=== PATIENT | male | born 1985 | race Caucasian/White ===

== ENCOUNTER 2019-12-13 12:58 | Emergency (ER) | payer OTHER, SELFPAY ==
[2019-12-13 13:00] VITALS: BP 130/79; PULSE 91; RESP 16; TEMP 35.6; O2SAT 98
--- NOTE | 2019-12-13 13:22 | ED.GENADULT ---
HPI - General Adult General Chief complaint: Skin/Abscess/Foreign Body Stated complaint: boils on my inner thigh Time Seen by Provider: 12/13/19 13:20 Source: patient Mode of arrival: ambulatory Limitations: no limitations History of Present Illness HPI narrative: Patient is a 34-year-old male who presents for evaluation of burning irritation on the right inguinal thigh region. Patient reports blister type lesions which appeared 2 days ago, are painful, burning in nature. Patient denies penile pain, penile discharge, lesions on the penis. He denies testicular pain, redness, swelling. No nausea or vomiting. No fever or chills. Patient with recent HIV test which was negative. No other history of sexually transmitted infections. Patient does have sex with other men, states no new partners. No history of genital herpes. Patient has not noticed any purulent drainage. Pt with hx of pilonidal cyst in the past. Related Data Allergies Allergy/AdvReac Type Severity Reaction Status Date / Time Penicillins Allergy Mild Swelling Verified 12/13/19 12:59 Review of Systems Review of Systems: Narrative: CONSTITUTIONAL: Denies fever CARDIOVASCULAR: Denies chest pain RESPIRATORY: Denies cough or dyspnea. GASTROINTESTINAL: Denies abdominal pain : Reports right inguinal lesions, burning pain, denies testicular pain, swelling, redness, penile discharge, dysuria or hematuria SKIN: Denies rash MUSCULOSKELETAL: Denies back pain NEUROLOGIC: Denies headache [facility] Past Medical History Medical History (Updated 12/13/19 @ 14:22 by Mya Man MD) Anxiety Depression History of pilonidal cyst Social History Social History Smoking status: Current every day smoker Gender identity (if verbalized by the patient): Male Exam Narrative: Exam Narrative: GENERAL: Awake, alert, conversant, tearful HEAD: Normocephalic, atraumatic. EYES: PERRLA and EOMI. ENT: Nares clear, no rhinorrhea or epistaxis. Mucous membranes moist. NECK: Supple. CHEST: No respiratory distress, breathing even and non labored HEART: Regular rate, sinus rhythm ABDOMEN:Non distended, non tender : Testicles are nontender, normal lie, no erythema. Penis is circumcised, glans is unremarkable. No penile discharge. No penile lesions. Along the right inguinal fold, there is very minimal erythema, honeycomb type cluster of lesions. No purulent discharge or abscess. No severe induration, mild erythema surrounding and tenderness. No lymphadenopathy. They are tender to palpation. EXTREMITIES: Normal range of motion. No edema. SKIN: Warm, dry, no rash. NEURO:No focal deficits. Alert and oriented x3 Course Vital Signs Vital signs: Vital Signs Temperature 35.6 C L 12/13/19 13:00 Pulse Rate 91 12/13/19 13:00 Respiratory Rate 16 12/13/19 13:00 Blood Pressure 130/79 12/13/19 13:00 Pulse Oximetry 98 12/13/19 13:00 Temperature 36.6 C 12/13/19 14:06 Pulse Rate 79 12/13/19 14:06 Respiratory Rate 16 12/13/19 14:06 Blood Pressure 134/100 H 12/13/19 14:06 Pulse Oximetry 95 12/13/19 14:06 Medical Decision Making MDM Narrative Medical decision making narrative: Patient with history of abscess, here with inguinal irritation. On exam, this seems most consistent with possible genital herpes given burning type pain, appearance of lesions being cluster-like, almost blisterlike in appearance. No purulent discharge. No abscess or fluctuance. No surrounding lymphadenopathy. Pt without testicular pain, edema, erythema thus I doubt torsion based on symptoms and physical exam. US not obtained. Patient without dysuria or hematuria was offered chlamydia and gonorrhea testing and declines. He was offered HIV testing but also declined. Currently, patient has no systemic symptoms. I explained that we will treat with antibiotics, swab the area and treat with acyclovir for possible herpes. Pt penicillin
[2019-12-13] MEDS: oxyCODONE/ACETAMINOPHEN 5-325 MG TABLET 1 TABLET PO (13:55)
[2019-12-13 14:06] VITALS: BP 134/100; PULSE 79; RESP 16; TEMP 36.6; O2SAT 95
[2019-12-18 04:39] LABS: Herpes Simplex Type 1 DNA PCR Not Detected (Not Detected); Herpes Simplex Type 2 DNA PCR Not Detected (Not Detected)
== END 2019-12-13 14:07 | disposition home or self-care (01) ==
PROVIDERS: Emergency Provider Emergency Medicine
DX: L98.9 Disorder of the skin and subcutaneous tissue, unspecified (principal); F17.200 Nicotine dependence, unspecified, uncomplicated
CPT/HCPCS: 36415; 87529; 99283; A9270

== ENCOUNTER 2022-12-24 12:23 | Emergency (ER) | payer OTHER, SELFPAY ==
[2022-12-24] VITALS (18 sets, daily range): BP systolic 110–153; BP diastolic 77–107; PULSE 96–106; RESP 18–20; TEMP 36.9; O2SAT 84–100
--- NOTE | ~2022-12-24 | CT_ITS ---
EXAMINATION: CT abdomen pelvis wo con DATE: 12/24/2022 14:45 INDICATION: Right flank pain. TECHNIQUE: Computed tomography (CT) of the abdomen and pelvis was performed without intravenous contr ast. Automated exposure control and iterative reconstruction technique were employed. The dose-length product was 1322.50 mGy-cm. COMPARISON: None. FINDINGS: The visualized portions of the lung bases demonstrate mild atelectasis. No pleural effusion . The heart size is normal. No pericardial effusion. There is diffuse hepatic steatosis. The gallblad mitchell, spleen, pancreas, adrenal glands, and kidneys are normal. There is no urolithiasis. There are no dilated loops of bowel. The appendix is normal. There are no pathologically enlarged lymph nodes. Th ere is no free intraperitoneal fluid. There is mild thoracic and lumbar spondylosis. There is mild ch ronic anterior wedging of T11 and T12 vertebral bodies. IMPRESSION: 1. No urolithiasis. 2. Diffuse hepatic steatosis. Reviewed, dictated and finalized at location A.
[2022-12-24 12:50] LABS: Basophils Absolute Auto 0.1 K/mm3 (0.0-0.1); Basophils Percent Auto 0.9 % (0.2-1.2); Eosinophils Absolute Auto 0.8 K/mm3 (0-0.3); Eosinophils Percent Auto 8.9 % (0-4.4); Hematocrit 48.2 % (42.0-52.0); Hemoglobin 15.8 g/dL (14.0-18.0); Immature Granulocyte Absolute 0.02 K/mm3 (0.00-0.031); Immature Granulocyte Percent A 0.2 % (0-0.5); Lymphocytes Absolute Auto 3.04 K/mm3 (0.9-3.2); Lymphocytes Percent Auto 34.9 % (18.3-44.2); Mean Corpuscular HGB Conc 32.8 g/dl (32-36); Mean Corpuscular Hemoglobin 31.2 pg (26-34); Mean Corpuscular Volume 95.3 fl (80-100); Mean Platelet Volume 10.1 fl (7.4-10.4); Monocytes Absolute Auto 0.6 K/mm3 (0.1-0.6); Neutrophils Absolute Auto 4.2 K/mm3 (1.3-6.7); Neutrophils Percent Auto 48.1 % (45.5-73.1); Platelet Count Result 303 k/mm3 (150-375); Red Blood Count 5.06 M/mm3 (4.6-6.20); Red Cell Distribution Width 14.9 % (11.5-14.5); White Blood Count 8.7 K/mm3 (4.5-10.0)
[2022-12-24 12:52] LABS: Appearance Urine Clear (Clear); Bilirubin Urine Negative (Negative); Blood Urine Negative (Negative); Color Urine Yellow (Yellow); Glucose Urine UA Negative (Negative); Ketones Urine Negative (Negative); Leukocyte Esterase Ur Negative LEU/UL (Negative); Nitrate Urine Negative (Negative); Protein Urine Negative (Negative); Specific Grav Ur 1.014 (1.001-1.035); Urobilinogen Urine 0.2 mg/dL (<2.0)
[2022-12-24 13:04] LABS: Alanine Aminotransferase 29 U/L (6-50); Albumin Level 4.5 g/dL (3.5-5.1); Alkaline Phosphatase 60 U/L (38-126); Anion Gap 8 mmol/L (8-16); Aspartate Amino Transferase 24 U/L (17-59); Bilirubin,Total 0.6 mg/dL (0.2-1.3); Blood Urea Nitrogen 11 mg/dL (9-20); Calcium 8.9 mg/dL (8.4-10.2); Carbon Dioxide 24 mmol/L (22-30); Chloride 105 mmol/L (98-107); Estimated CRCL calculation 123 ml/min; Estimated Glomerular Filt Rate > 60; Glucose 109 mg/dL (65-110); Potassium 4.5 mmol/L (3.4-5.0); Sodium 137 mmol/L (137-145)
[2022-12-24 13:20] LABS: Add Urine Microscopic? NO
[2022-12-24] MEDS: KETOROLAC (*BKC) 60 MG/2 ML VIAL IM (14:22)
--- NOTE | 2022-12-24 14:41 | PC.NURSE ---
taken to CT at this time by foundation director.
--- NOTE | 2022-12-24 14:46 | PC.NURSE ---
pt returned from CT at this time.
--- NOTE | 2022-12-24 15:50 | ED.ABDPAIN ---
HPI - Abdominal Pain General Chief Complaint: Urogenital-Male Stated Complaint: lower back pain Time Seen by Provider: 12/24/22 13:28 History of Present Illness HPI narrative: This is a 37-year-old male, with no significant past medical history, who presents to the emergency department complaining of right flank and abdominal pain for the past day. The patient describes the pain as sharp and cramping, rated 9/10, radiating from the right flank to the groin. He states he also had difficulty with urinating, having to push associated with discolored appearing urine. He denies fevers, chills though does complain of some nausea. Related Data Allergies Allergy/AdvReac Type Severity Reaction Status Date / Time Penicillins Allergy Mild Swelling Verified 12/24/22 12:44 Review of Systems Review of Systems: CONSTITUTIONAL: Denies fever, chills, or sweats. CARDIOVASCULAR: Denies chest pain, palpitations, or edema. RESPIRATORY: Denies cough or dyspnea. GASTROINTESTINAL: Right flank and abdominal pain, radiating to the groin denies nausea, vomiting, or diarrhea. GENITOURINARY: Dysuria denies hematuria. SKIN: Denies rash or itching. MUSCULOSKELETAL: Denies back pain, joint pain, or myalgia. NEUROLOGIC: Denies headache, numbness, dizziness, or weakness. PSYCHIATRIC: Denies anxiety or depression. [facility] Past Medical History Medical History (Updated 12/25/22 @ 00:07 by Sammi Quinonez) Anxiety Depression History of pilonidal cyst Surgical History Surgical History (Updated 12/25/22 @ 07:12 by Holden Heaton MD) No significant past surgical history Social History Social History Smoking status: Current every day smoker Gender identity (if verbalized by the patient): Male Exam Narrative: GENERAL: Well-developed, well-nourished, and in no acute distress. HEAD: Normocephalic, atraumatic. EYES: PERRLA and EOMI. CHEST: Clear to auscultation. No respiratory distress. No wheezes rales or rhonchi HEART: Regular rate and rhythm. No murmur heard. Normal peripheral pulses. ABDOMEN: Soft, tender to palpation in the right upper quadrant without rebound or guarding, nondistended, normal active bowel sounds. Mild right CVA tenderness to palpation. No left CVA tenderness EXTREMITIES: Normal range of motion. No edema. SKIN: Warm, dry, no rash. NEURO: No focal deficits. Alert and oriented x3. PSYCH: Normal mood and affect. Course Course Emergency Course: 15:45 - CBC unremarkable. Chemistries unremarkable. UA negative. Noncontrast CT of the abdomen not concerning for stone or other acute intra-abdominal process. On reevaluation after Toradol, the patient states his pain is much improved though still present. I suspect the patient may have passed a stone. Will discharge with recommendation for NSAIDs for pain. Discussed return and emergency precautions including signs/symptoms of acute abdomen and intractable vomiting. The patient voiced understanding and is comfortable with the plan. All questions answered to his satisfaction. Vital Signs Vital signs: Vital Signs Temperature 98.4 F 12/24/22 12:44 Pulse Rate 106 H 12/24/22 12:44 Respiratory Rate 20 12/24/22 12:44 Blood Pressure 142/98 H 12/24/22 12:44 Pulse Oximetry 84 L 12/24/22 12:44 Oxygen Delivery Room Air 12/24/22 12:44 Temperature 98.4 F 12/24/22 12:44 Pulse Rate 96 12/24/22 12:44 Respiratory Rate 18 12/24/22 12:44 Blood Pressure 127/78 12/24/22 15:47 Pulse Oximetry 100 12/24/22 15:47 Oxygen Delivery Room Air 12/24/22 12:44 MDM - Abdominal Pain MDM Narrative Medical decision making narrative: Plan: Labs, imaging, pain control, reassess Differential Diagnosis Differential diagnosis: Likely acute appendicitis, calculus of kidney, diverticulitis, pancreatitis, small bowel obstruction and other (Metabolic abnormality, UTI, other) Lab Data 12/24/22 12:42
[2022-12-24] MEDS: ACETAMINOPHEN 500 MG TABLET 1000 MG PO (15:56)
== END 2022-12-24 16:06 | disposition home or self-care (01) ==
PROVIDERS: Student in an Organized Health Care Education/Training Program; Emergency Provider Preventive Medicine Aerospace Medicine
DX: R10.9 Unspecified abdominal pain (principal); F17.200 Nicotine dependence, unspecified, uncomplicated
CPT/HCPCS: 36415; 74176; 80053; 81003; 85025; 96372; 99284; A9270; J1885

== ENCOUNTER 2023-06-15 09:01 | Emergency (ER) | payer OTHER, SELFPAY ==
[2023-06-15] VITALS (10 sets, daily range): BP systolic 104–148; BP diastolic 53–97; PULSE 64–105; RESP 11–24; TEMP 36.8; O2SAT 97–100
--- NOTE | ~2023-06-15 | XR_ITS ---
EXAMINATION: XR chest 2V DATE: 06/15/2023 12:18 INDICATION: Cough. Chest pain. TECHNIQUE: Frontal and lateral views of the chest were obtained. COMPARISON: CT abdomen and pelvis 12/24/2022 FINDINGS: There is no pneumonia, pleural effusion, or pneumothorax. The heart size is normal. IMPRESSION: 1. No acute cardiopulmonary disease. Reviewed, dictated and finalized at location A. [employer]ATCHER
[2023-06-15 10:14] LABS: Influenza A QL RT-PCR Negative (Negative); Influenza B QL RT-PCR Negative (Negative); RSV RNA, RT-PCR Positive (Negative); SARS-CoV-2 RNA PCR Negative (Negative)
--- NOTE | 2023-06-15 10:44 | ECG_ITS ---
Measurements Intervals [place] Rate: 72 P: 37 OK: 167 QRS: 83 QRSD: 106 T: 40 QT: 355 QTc: 389 Interpretive Statements SINUS RHYTHM DELAYED PRECORDIAL R/S TRANSITION BASELINE WANDER- V4-V6 BORDERLINE ECG NO PREVIOUS ECG AVAILABLE FOR COMPARISON Electronically Signed On 06-15-2023 11:11:06 MEDICAL RECORDS ADMINISTRATOR by Krishna Lopez D.O.
--- NOTE | 2023-06-15 10:47 | ED.URI ---
HPI - URI/Sore Throat General Chief Complaint: Upper Respiratory Infection Stated Complaint: URI Time Seen by Provider: 06/15/23 09:25 History of Present Illness HPI Narrative: 37-year-old male with history of SLE, anxiety and depression reports for evaluation for multiple medical complaints. He is reporting pleuritic chest pain, generalized abdominal pain, sore throat, shortness of breath, Body aches, fever, dry cough x1 week. He reports with his partner who has similar symptoms. states his fevers been between 100-102 at home. He is afebrile here. Related Data Allergies Allergy/AdvReac Type Severity Reaction Status Date / Time Penicillins Allergy Mild Swelling Verified 06/15/23 12:08 Review of Systems Review of Systems: CONSTITUTIONAL: see HPI EYES: Denies visual changes, redness, or discharge. ENT: Denies rhinorrhea, congestion, sore throat, or otalgia. CARDIOVASCULAR: See HPI RESPIRATORY: see HPI GASTROINTESTINAL: see HPI GENITOURINARY: Denies dysuria or hematuria. SKIN: Denies rash or itching. MUSCULOSKELETAL: Denies back pain, joint pain, or myalgia. NEUROLOGIC: Denies headache, numbness, or weakness. PSYCHIATRIC: Denies anxiety or depression. [facility] Past Medical History Medical History Anxiety Depression History of pilonidal cyst Surgical History Surgical History No significant past surgical history Social History Social History Smoking status: Current every day smoker Gender identity (if verbalized by the patient): Male Exam Narrative: GENERAL: nontoxic appearing in no acute distress. tearful And anxious HEAD: Normocephalic, atraumatic. EYES: PERRLA and EOMI. ENT: Nares clear, no rhinorrhea or epistaxis. Mucous membranes moist. posterior pharynx with mild erythema. No tonsillar hypertrophy or exudates. Uvula is midline. NECK: Supple. CHEST: Clear to auscultation. No respiratory distress. HEART: Regular rate and rhythm. No murmur heard. Normal peripheral pulses. ABDOMEN: Soft, nontender, nondistended, normal active bowel sounds. No rebound, guarding or rigidity. EXTREMITIES: Normal range of motion. No edema. SKIN: Warm, dry, no rash. NEURO: No focal deficits. Alert and oriented x3 Course Vital Signs Vital signs: Vital Signs Temperature 98.2 F 06/15/23 09:09 Pulse Rate 105 H 06/15/23 09:09 Respiratory Rate 18 06/15/23 09:09 Blood Pressure 148/96 H 06/15/23 09:09 Pulse Oximetry 98 06/15/23 09:09 Temperature 98.2 F 06/15/23 09:09 Pulse Rate 70 06/15/23 12:16 Respiratory Rate 17 06/15/23 12:16 Blood Pressure 129/78 06/15/23 12:16 Pulse Oximetry 99 06/15/23 12:16 Oxygen Delivery Room Air 06/15/23 09:45 MDM - URI/Sore Throat MDM Narrative Medical decision making narrative: 37-year-old male reports for evaluation for multiple medical complaints . See HPI. Triage vital significant for mild tachycardia, otherwise unremarkable. He is afebrile and nontoxic appearing. He is tearful on exam very anxious. Abdomen is soft, no rebound, guarding or rigidity. He is RSV positive. CBC without leukocytosis or anemia. Chemistries are unremarkable. Chest x-ray Shows no acute cardiopulmonary abnormality. Strep negative. UA unremarkable. D-dimer within normal limits, wells score low risk. Troponin less than 0.012. EKG shows sinus rhythm, no ischemic changes. Labs and imaging discussed with the patient. He received IV fluids and Toradol with improvement. Vital signs of improved, tachycardia has normalized. Will send NSAIDs for suspected pleurisy and benzonatate for cough. Encouraged increased fluid intake and follow-up with PCP. Strict ED return precautions discussed. He is agreeable to plan verbalized understanding. Discharged in stable condition. Lab
[2023-06-15] MEDS: KETOROLAC 30 MG/ML VIAL (*BKC) IV PUSH (11:11)
[2023-06-15] MEDS: SODIUM CHLORIDE 0.9% IV 1,000 ML 999 ML IV CONT (11:12)
[2023-06-15 11:20] LABS: Basophils Absolute Auto 0.1 K/mm3 (0.0-0.1); Basophils Percent Auto 1.2 % (0.2-1.2); Eosinophils Absolute Auto 0.8 K/mm3 (0-0.3); Eosinophils Percent Auto 11.9 % (0-4.4); Hematocrit 49.6 % (42.0-52.0); Hemoglobin 16.2 g/dL (14.0-18.0); Immature Granulocyte Absolute 0.02 K/mm3 (0.00-0.031); Immature Granulocyte Percent A 0.3 % (0-0.5); Lymphocytes Absolute Auto 1.76 K/mm3 (0.9-3.2); Lymphocytes Percent Auto 25.8 % (18.3-44.2); Mean Corpuscular HGB Conc 32.7 g/dl (32-36); Mean Corpuscular Hemoglobin 31.2 pg (26-34); Mean Corpuscular Volume 95.6 fl (80-100); Mean Platelet Volume 10.6 fl (7.4-10.4); Monocytes Absolute Auto 0.8 K/mm3 (0.1-0.6); Neutrophils Absolute Auto 3.3 K/mm3 (1.3-6.7); Neutrophils Percent Auto 48.8 % (45.5-73.1); Platelet Count Result 260 k/mm3 (150-375); Red Blood Count 5.19 M/mm3 (4.6-6.20); Red Cell Distribution Width 14.4 % (11.5-14.5); White Blood Count 6.8 K/mm3 (4.5-10.0)
[2023-06-15 11:33] LABS: Strep Group A RT-PCR NOT DETECTED (Negative)
[2023-06-15 11:38] LABS: Alanine Aminotransferase 36 U/L (6-50); Albumin Level 4.3 g/dL (3.5-5.1); Alkaline Phosphatase 65 U/L (38-126); Anion Gap 7 mmol/L (8-16); Aspartate Amino Transferase 27 U/L (17-59); Bilirubin,Total 0.8 mg/dL (0.2-1.3); Blood Urea Nitrogen 13 mg/dL (9-20); Calcium 9.4 mg/dL (8.4-10.2); Carbon Dioxide 30 mmol/L (22-30); Chloride 103 mmol/L (98-107); Estimated CRCL calculation 113 ml/min; Estimated Glomerular Filt Rate > 60; Glucose 92 mg/dL (65-110); Lipase 58 U/L (23-300); Potassium 4.3 mmol/L (3.4-5.0); Sodium 140 mmol/L (137-145)
[2023-06-15 11:40] LABS: D Dimer 0.32 ug/mL (<0.48)
[2023-06-15 11:43] LABS: Appearance Urine Turbid (Clear); Bacteria Urine None Seen /hpf; Bilirubin Urine Negative (Negative); Blood Urine Negative (Negative); Color Urine Yellow (Yellow); Glucose Urine UA Trace mg/dL (Negative); Ketones Urine Negative (Negative); Leukocyte Esterase Ur Negative LEU/UL (Negative); Nitrate Urine Negative (Negative); Non Pathogenic Casts 0-2; Protein Urine Negative (Negative); RBC Urine 0-2 /hpf (0-2); Specific Grav Ur 1.018 (1.001-1.035); Squamous Epithelial Cell Urine None seen /hpf (Few); WBC Urine 0-5 /hpf
[2023-06-15 11:50] LABS: Troponin I < 0.012 ng/mL (0.000-0.034)
[2023-06-15 12:00] LABS: Add Urine Microscopic? YES
== END 2023-06-15 12:50 | disposition home or self-care (01) ==
PROVIDERS: Emergency Medicine; Emergency Provider Physician Assistant
DX: R09.1 Pleurisy (principal); J22 Unspecified acute lower respiratory infection; Z20.822 Contact with and (suspected) exposure to COVID-19; F41.9 Anxiety disorder, unspecified; F32.A Depression, unspecified
CPT/HCPCS: 36415; 71046; 80053; 81001; 83690; 84484; 85025; 85380; 87637; 87651; 93005; 96361; 96374; 99284; J1885; J7030

== ENCOUNTER 2023-11-22 12:26 | Emergency (ER) | payer OTHER, SELFPAY ==
[2023-11-22 12:42] VITALS: BP 158/100; PULSE 75; RESP 16; TEMP 36.2; O2SAT 100
--- NOTE | 2023-11-22 13:07 | ED.GENADULT ---
HPI - General Adult General Chief complaint: Unspecified Stated complaint: lump to right axilla Time Seen by Provider: 11/22/23 12:56 History of Present Illness HPI narrative: 38-year-old male history of hidradenitis suppurativa presents to the emergency room for evaluation of a painful bump to my right armpit. States this mass has been present for 4 weeks. Has denied any drainage. Denies fevers Related Data Allergies Allergy/AdvReac Type Severity Reaction Status Date / Time Penicillins Allergy Mild Swelling Verified 11/22/23 12:26 Review of Systems Review of Systems: ROS unremarkable except for noted in HPI [facility] Past Medical History Medical History Anxiety Depression History of pilonidal cyst Surgical History Surgical History No significant past surgical history Social History Social History Smoking status: Current every day smoker Gender identity (if verbalized by the patient): Male Exam Narrative: GENERAL: Well-appearing, well-nourished, no physical limitations, and in no acute distress. HEAD: Normocephalic, atraumatic. EYES: Conjunctivae normal, PERRLA and EOMI. ENT: External nose normal, Nares clear, no rhinorrhea or epistaxis. Mucous membranes moist. Oropharynx without tonsillar hypertrophy exudate or other lesions. External ears normal, bilateral TMs normal bilaterally NECK: Supple. No meningeal signs. No adenopathy or masses. No carotid bruits or JVD CHEST: Clear to auscultation. No respiratory distress. No wheezes rales or rhonchi. No tenderness. HEART: Regular rate and rhythm. No murmur heard. Normal peripheral pulses. EXTREMITIES: Normal range of motion. No edema. No clubbing or cyanosis SKIN: small mobile, Tender mass noted to right axilla, no surrounding erythema. No drainage. NEURO: No focal deficits. Alert and oriented x3. MAEW. CN's II-XI intact bilaterally, normal gait PSYCH: Cooperative. anxious and tearful Course Vital Signs Vital signs: Vital Signs Temperature 36.2 C L 11/22/23 12:42 Pulse Rate 75 11/22/23 12:42 Respiratory Rate 16 11/22/23 12:42 Blood Pressure 158/100 H 11/22/23 12:42 Pulse Oximetry 100 11/22/23 12:42 Temperature 36.2 C L 11/22/23 12:42 Pulse Rate 75 11/22/23 12:42 Respiratory Rate 16 11/22/23 12:42 Blood Pressure 158/100 H 11/22/23 12:42 Pulse Oximetry 100 11/22/23 12:42 Medical Decision Making Vital Signs Vital Signs: Vital Signs Temperature 36.2 C L 11/22/23 12:42 Pulse Rate 75 11/22/23 12:42 Respiratory Rate 16 11/22/23 12:42 Blood Pressure 158/100 H 11/22/23 12:42 Pulse Oximetry 100 11/22/23 12:42 Temperature 36.2 C L 11/22/23 12:42 Pulse Rate 75 11/22/23 12:42 Respiratory Rate 16 11/22/23 12:42 Blood Pressure 158/100 H 11/22/23 12:42 Pulse Oximetry 100 11/22/23 12:42 Discharge Plan Discharge Clinical Impression: Axillary hidradenitis suppurativa Patient Disposition: Home, Self-Care Condition: Stable Instructions: Antibiotic Form Prescriptions: New clindamycin phosphate 1 % solution 1 applic topical BID Qty: 60 0RF prednisone 20 mg tablet 40 mg PO DAILY 5 Days Qty: 10 0RF Follow-up/Referrals: PHYSICIAN NOT ON STAFF,NONSTAFF [Non-Staff] - Jc Gonzalez DO [Physician] - Time of Disposition: 13:11
[2023-11-22] MEDS: KETOROLAC (*BKC) 60 MG/2 ML VIAL IM (13:23)
== END 2023-11-22 13:41 | disposition home or self-care (01) ==
PROVIDERS: Emergency Provider Nurse Practitioner Family
DX: L73.2 Hidradenitis suppurativa (principal); F17.200 Nicotine dependence, unspecified, uncomplicated
CPT/HCPCS: 96372; 99283; J1885

== ENCOUNTER 2023-12-13 15:48 | Outpatient (CLI) | payer OTHER, SELFPAY ==
--- NOTE | ~2023-12-13 | US_ITS ---
EXAMINATION: US axilla RT DATE: 12/13/2023 16:23 INDICATION: Palpable lump at the right axilla. TECHNIQUE: Multiple grayscale and Doppler ultrasound images of the region of concern at the right axi lla were obtained. COMPARISON: None FINDINGS: Mildly prominent but still normal-sized 2.3 x 1.6 x 0.8 cm right axillary lymph node with normal prom inent central fatty hilum. No other abnormal masses or fluid collections identified. IMPRESSION: 1. Mildly prominent but still normal-sized right axillary lymph node measuring 8 mm in maximal short axis diameter with prominent central fatty hilum. Reviewed, dictated and finalized at location A.
== END 2023-12-13 15:49 | disposition home or self-care (01) ==
PROVIDERS: Visit Provider Surgery
DX: R22.31 Localized swelling, mass and lump, right upper limb (principal)
CPT/HCPCS: 76882

== ENCOUNTER 2024-01-24 12:46 | Emergency (ER) | payer OTHER, SELFPAY ==
--- NOTE | ~2024-01-24 | XR_ITS ---
EXAMINATION: XR chest 2V DATE: 01/24/2024 13:26 INDICATION: Chest pain. TECHNIQUE: Frontal and lateral views of the chest were obtained. COMPARISON: Chest 2 views 06/15/2023, CT abdomen and pelvis 12/24/2022 FINDINGS: There is no pneumonia, pleural effusion, or pneumothorax. The heart size is normal. IMPRESSION: 1. No acute cardiopulmonary disease. Reviewed, dictated and finalized at location A.
--- NOTE | 2024-01-24 12:48 | ECG_ITS ---
Test Date: 2024-01-24 12:53:40 Measurements Intervals [place] Rate: 73 P: 32 IA: 165 QRS: 73 QRSD: 105 T: 5 QT: 351 QTc: 387 Interpretive Statements SINUS RHYTHM DELAYED PRECORDIAL R/S TRANSITION NONSPECIFIC ST-T WAVE ABNORMALITY- INFERIOR LEADS BASELINE ARTIFACT- I, II, AVR, AVL BORDERLINE ECG No previous ECG available for comparison Electronically Signed On 01-24-2024 13:16:54 CDT by Krishna Lopez D.O.
[2024-01-24 12:52] VITALS: BP 170/94; PULSE 85; RESP 20; TEMP 36.7; O2SAT 95
--- NOTE | 2024-01-24 12:52 | ED.CHESTPAIN ---
HPI - Chest Pain General Chief Complaint: Chest Pain Stated Complaint: chest pain Focused HPI: 38-year-old male presents to the emergency department for chest pain for the past 24 hours. Patient states is located in his central chest and at time he feels it in his throat and shoulders. States he took hydroxyzine, aspirin and antacids without improvement. States in the past these medications have helped with his chest pain. Patient describes the pain as burning. Smokes 1ppd for 20 years. Denies dyspnea, fever, cough, congestion, hemoptysis, surgeries or hospitalizations in the past month. Pt is reporting current anxiety. States he has white coat syndrome. GENERAL: Well-appearing, well-nourished, and in no acute distress. HEAD: Normocephalic, atraumatic. CHEST: Clear to auscultation. ?No respiratory distress. HEART: Regular rate and rhythm.? NEURO: ?Alert and oriented x3. Patient screened in triage and initial orders placed.? ?Additional care and disposition to be based upon?diagnostic testing and treatment. Related Data Allergies Allergy/AdvReac Type Severity Reaction Status Date / Time Penicillins Allergy Mild Swelling Verified 12/01/23 13:13 [facility] Past Medical History Medical History Anxiety Depression History of pilonidal cyst Surgical History Surgical History No significant past surgical history Family History Family History (Updated 12/01/23 @ 13:14 by YUMIKO Petit) Other Asthma Cancer Depression Hypertension Social History Social History (Updated 12/01/23 @ 13:15 by YUMIKO Petit) Smoking status: Current every day smoker Do You Feel Safe in your Home?: Yes Lack of Transportation: No Lack of Food: Sometimes True Current Housing: I Do Not Have Housing Concerned About Future Housing: YES Difficulty Paying Gas/Electric Bills: No Difficulty Paying for Meds: YES Currently Unemployed: YES Education: High School Diploma/GED Difficulty w/ Childcare or Family Care: No Gender identity (if verbalized by the patient): Male Course Vital Signs Vital signs: Vital Signs Temperature 98.1 F 01/24/24 12:52 Pulse Rate 85 01/24/24 12:52 Respiratory Rate 01/24/24 12:52 Blood Pressure 170/94 H 01/24/24 12:52 Pulse Oximetry 95 01/24/24 12:52 Oxygen Delivery Room Air 01/24/24 12:52 Temperature 98.1 F 01/24/24 12:52 Pulse Rate 85 01/24/24 12:52 Respiratory Rate 20 01/24/24 12:52 Blood Pressure 170/94 H 01/24/24 12:52 Pulse Oximetry 95 01/24/24 12:52 Oxygen Delivery Room Air 01/24/24 12:52 MDM - Chest Pain Lab Data 01/24/24 13:00 01/24/24 13:00 Labs: Lab Results 01/24/24 Range/Units 13:00 WBC 9.9 (4.5-10.0) K/mm3 RBC 5.14 (4.6-6.20) M/mm3 Hgb 16.4 (14.0-18.0) g/dL Hct 48.9 (42.0-52.0) % MCV 95.1 (80-100) fl MCH 31.9 (26-34) pg MCHC 33.5 (32-36) g/dl RDW 14.3 (11.5-14.5) % Plt Count 256 (150-375) k/mm3 MPV 10.4 (7.4-10.4) fl Immature Gran % (Auto) 0.3 (0-0.5) % Neut % (Auto) 51.1 (45.5-73.1) % Lymph % (Auto) 34.1 (18.3-44.2) % [place] % (Auto) 6.3 (2.6-8.5) % Eos % (Auto) 7.4 H (0-4.4) % Baso % (Auto) 0.8 (0.2-1.2) % Lymph # (Auto) 3.36 H (0.9-3.2) K/mm3 [place]oup # (Auto) 0.6 (0.1-0.6) K/mm3 Eos # (Auto) 0.7 H (0-0.3) K/mm3 Baso # (Auto) 0.1 (0.0-0.1) K/mm3 Abs Immat Gran (auto) 0.03 (0.00-0.031) K/mm3 Absolute Neuts (auto) 5.0 (1.3-6.7) K/mm3 Absolute Nucleated RBC 0.000 (0.0-0.012) K/mm3 Nucleated RBC % 0.0 (0.0-0.2) % PT 13.5 (11.1-14.7) Seconds INR 1.0 APTT 31.5 (22.3-36.8) Seconds Sodium 137 (137-145) mmol/L Potassium 4.2 (3.4-5.0) mmol/L Chloride 102 (98-107) mmol/L Carbon Dioxide 25 (22-30) mmol/L Anion Gap 10 (4-12) mmol/L BUN 12 (9-20) mg/dL Creatinine 1.00 (0.7
[2024-01-24 13:07] LABS: Basophils Absolute Auto 0.1 K/mm3 (0.0-0.1); Basophils Percent Auto 0.8 % (0.2-1.2); Eosinophils Absolute Auto 0.7 K/mm3 (0-0.3); Eosinophils Percent Auto 7.4 % (0-4.4); Hematocrit 48.9 % (42.0-52.0); Hemoglobin 16.4 g/dL (14.0-18.0); Immature Granulocyte Absolute 0.03 K/mm3 (0.00-0.031); Immature Granulocyte Percent A 0.3 % (0-0.5); Lymphocytes Absolute Auto 3.36 K/mm3 (0.9-3.2); Lymphocytes Percent Auto 34.1 % (18.3-44.2); Mean Corpuscular HGB Conc 33.5 g/dl (32-36); Mean Corpuscular Hemoglobin 31.9 pg (26-34); Mean Corpuscular Volume 95.1 fl (80-100); Mean Platelet Volume 10.4 fl (7.4-10.4); Monocytes Absolute Auto 0.6 K/mm3 (0.1-0.6); Monocytes Percent Auto 6.3 % (2.6-8.5); Neutrophils Percent Auto 51.1 % (45.5-73.1); Platelet Count Result 256 k/mm3 (150-375); Red Blood Count 5.14 M/mm3 (4.6-6.20); Red Cell Distribution Width 14.3 % (11.5-14.5); White Blood Count 9.9 K/mm3 (4.5-10.0)
[2024-01-24 13:26] LABS: Alanine Aminotransferase 35 U/L (6-50); Albumin Level 4.6 g/dL (3.5-5.1); Alkaline Phosphatase 65 U/L (38-126); Anion Gap 10 mmol/L (4-12); Aspartate Amino Transferase 26 U/L (17-59); Bilirubin,Total 0.7 mg/dL (0.2-1.3); Blood Urea Nitrogen 12 mg/dL (9-20); Calcium 9.1 mg/dL (8.4-10.2); Carbon Dioxide 25 mmol/L (22-30); Chloride 102 mmol/L (98-107); Estimated CRCL calculation 113 ml/min; Estimated Glomerular Filt Rate > 60; Glucose 170 mg/dL (65-110); Lipase 55 U/L (23-300); Potassium 4.2 mmol/L (3.4-5.0); Prothrombin Time 13.5 Seconds (11.1-14.7); Sodium 137 mmol/L (137-145)
[2024-01-24 13:27] LABS: Partial Thromboplastin Time 31.5 Seconds (22.3-36.8)
[2024-01-24 13:37] LABS: Troponin I < 0.012 ng/mL (0.000-0.034)
--- NOTE | 2024-01-24 16:17 | PC.NURSE ---
pt LWBS d/t wait time
== END 2024-01-24 16:17 | disposition left against medical advice (07) ==
PROVIDERS: Student in an Organized Health Care Education/Training Program; Emergency Provider Physician Assistant
DX: R07.9 Chest pain, unspecified (principal); F17.200 Nicotine dependence, unspecified, uncomplicated; R94.31 Abnormal electrocardiogram [ECG] [EKG]
CPT/HCPCS: 36415; 71046; 80053; 83690; 84484; 85025; 85610; 85730; 93005; 99283

== ENCOUNTER 2024-07-16 19:32 | Emergency (ER) | payer OTHER, SELFPAY ==
--- NOTE | 2024-07-16 19:38 | ED.EAR ---
HPI - Ear Problem General Chief complaint: Ear Stated complaint: both ears painful Time Seen by Provider: 07/16/24 19:38 Source: patient, RN notes reviewed and old records reviewed Mode of arrival: ambulatory Limitations: no limitations History of Present Illness HPI Narrative: 38-year-old male presents to the [facility] with bilateral ear pain that started 2 days ago. Right ear person. Pain radiating into the right jaw area. Patient also has a circular rash with edges raised approximately 1 cm just above left knee anterior portion. Related Data Allergies Allergy/AdvReac Type Severity Reaction Status Date / Time Penicillins Allergy Mild Swelling Verified 07/17/24 02:09 Review of Systems Review of Systems: All systems reviewed & are unremarkable except as noted in HPI and below Constitutional: Constitutional: Reports no additional constitutional complaints ENT: Reports as per HPI and Reports otalgia Cardiovascular: Cardiovascular: Reports no additional cardiovascular complaints, Denies chest pain and Denies dyspnea Respiratory: Respiratory: Reports no additional respiratory complaints, Denies chest congestion, Denies cough and Denies dyspnea Musculoskeletal: Musculoskeletal: Reports no additional musculoskeletal complaints Integumentary/Breasts: Skin/Breast: Reports as per HPI [facility] Past Medical History Medical History History of pilonidal cyst Depression Anxiety Surgical History Surgical History No significant past surgical history Family History Family History Other Asthma Cancer Depression Hypertension Social History Social History Smoking status: Current every day smoker Do You Feel Safe in your Home?: Yes Lack of Transportation: No Lack of Food: Sometimes True Current Housing: I Do Not Have Housing Concerned About Future Housing: YES Difficulty Paying Gas/Electric Bills: No Difficulty Paying for Meds: YES Currently Unemployed: YES Education: High School Diploma/GED Difficulty w/ Childcare or Family Care: No Gender identity (if verbalized by the patient): Male Comments At the time of my signature, I reviewed and agree with the nursing past medical, surgical, social, and family history. There is no relevant family history pertinent to the patient complaint. Exam Const: General: cooperative, healthy appearing, comfortable, no acute distress, well developed, alert and well nourished Nutritional Appearance: well nourished Orientation/consciousness: patient oriented x3 Limitations: no limitations HENMT: Head: normal to inspection Ears: hearing grossly normal bilaterally, external ears normal, TM's normal bilaterally, EAC's normal, mastoids normal and no periauricular adenopathy Teeth image:  1. Dental caries on the inside of molar, inflammation to the surrounding gingiva. Eyes: General: appearance normal, both eyes and all related structures Alignment and Position: alignment normal Neck: Neck: normal visual inspection, full ROM, no lymphadenopathy and no meningeal signs Chest: Chest palpation & inspection: normal inspection of the chest Resp: Effort & Inspection: normal respiratory effort and able to speak in complete sentences Cardio: Rate: regular rate Skin: General skin exam: normal color and no rashes or lesions noted Rashes: rashes noted left anterior upper leg size (1cm) and surface dry; fluctuant not assessed Neuro: General: patient oriented x3, gait normal, moves all extremities and no meningeal signs Cognition (Neuro): normal cognition Speech: normal speech Gait exam (Neuro): Normal gait present Extrem: General: normal to inspection, full ROM, capillary refill normal and normal gait Psych: Appearance: grossly normal and well kempt Mental Status: mental status grossly normal Speech and movement: Normal speech and movement present and Clear speech present Affect: normal affect Attitude: cooperative Course Course Level of Care: Express Care Visit Vital Signs Vital signs: Vital Signs Temperature 97.2 F L 07/16/24 19:41 Pulse Rate 102 H 07/16/24 19:41 Respiratory Rate 16 07/16/24 19:41 Blood Pressure 169/108 H 07/16/24 19:41 Pulse Oximetry 99 07/16/24 19:41 Oxygen Delivery Room Air 07/16/24 19:41 Temperature 97.2 F L 07/16/24 19:41 Pulse Rate 102 H 07/16/24 19:41 Respiratory Rate 16 07/16/24 19:41 Blood Pressure 169/108 H 07/16/24 19:41 Pulse Oximetry 99 07/16/24 19:41 Oxygen Delivery Room Air 07/16/24 19:41 Reviewed Medical Decision Making MDM Narrative Medical decision making narrative: Patient sitting comfortably in exam room. Nontoxic, vitals stable. Patient in no acute distress Patient presents for bilateral ear pain, worse on the right than a half it. Patient has decay noted to the inner aspect of a molar. Some surrounding erythema. TMs with or normal limits Patient reports discomfort to the ears Patient also with concerns of a circular rash to the anterior lower thigh Discussed antibiotics. Patient is allergic to penicillin. Patient reports that he has hidradenitis and has ?plenty of clindamycin at home. Discussed over the counter treatments. Will prescribe antifungal cream for the ring warm. Patient reports questioning a prescription for ibuprofen 800 mg. Patient is appropriate for outpatient treatment with close follow-up. Patient does have an appointment with Dr. Lopez color checker roving or yarn this month. Discharge instructions reviewed with patient, as well as provided in writing per nursing staff. The instructions also include specific and strict return/GO TO THE ER as well as f/u information. All questions have been answered, and the patient deny any further questions with discharge and discharge plan. Some parts of this dictation were generated by voice recognition software and may contain typographical and/or grammatical inaccuracies. Differential Diagnosis Differential Diagnosis: Otitis media, otitis externa, dental pain Medical Records Medical records reviewed: Yes I reviewed the external patient's medical records. Vital Signs Vital Signs: Vital Signs Temperature 97.2 F L 07/16/24 19:41 Pulse Rate 102 H 07/16/24 19:41 Respiratory Rate 16 07/16/24 19:41 Blood Pressure 169/108 H 07/16/24 19:41 Pulse Oximetry 99 07/16/24 19:41 Oxygen Delivery Room Air 07/16/24 19:41 Temperature 97.2 F L 07/16/24 19:41 Pulse Rate 102 H 07/16/24 19:41 Respiratory Rate 16 07/16/24 19:41 Blood Pressure 169/108 H 07/16/24 19:41 Pulse Oximetry 99 07/16/24 19:41 Oxygen Delivery Room Air 07/16/24 19:41 Reviewed Lab Data Lab results reviewed: Yes I reviewed the patient's lab results. Labs: Reviewed Critical Care Time Critical Care Time Critical Care Time: No Discharge Plan Discharge Clinical Impression: Infected dental caries, Tinea corporis Patient Disposition: Home, Self-Care Condition: Stable Instructions: Antibiotic Form, Tinea Corporis (ED), Toothache (ED) Additional Instructions: Today your blood pressure was 169/108. Please follow-up with your primary care provider or color checker roving or yarn within the next 2 weeks to have this rechecked. Finish the entire course of antibiotics & use the mouthwash. After every time you eat be sure to use salt water rinses. Apply ice to face to help with pain. Take Tylenol alternating with Motrin as needed for pain. You can alternate every 4 hours You need to follow-up with a dental provider as soon as possible for further evaluation and treatment. A list of dental providers has been given to you Follow up with a Primary Care Provider (PCP) about medical needs. A PCP can help keep you healthy by preventive medicine and screening. Go to the ER for New or worsening symptoms. For the ring warm on your left leg please apply cream for the next 4 weeks. Follow-up with primary care provider For the worsening symptoms go directly to the emergency room Patient Language: Indonesian Prescriptions: New clotrimazole 1 % cream 1 applic topical BID 28 Days Qty: 45 0RF ibuprofen 800 mg tablet 800 mg PO TID PRN (Reason: pain) Qty: 30 0RF Follow-up/Referrals: PHYSICIAN,CONTROL PANEL ASSEMBLER [Primary Care Provider] - Stand Alone Forms: Work/School Release IP Time of Disposition: 19:48
[2024-07-16 19:41] VITALS: BP 169/108; PULSE 102; RESP 16; TEMP 36.2; O2SAT 99
== END 2024-07-16 19:52 | disposition home or self-care (01) ==
PROVIDERS: Emergency Provider Nurse Practitioner
DX: K02.9 Dental caries, unspecified (principal); B35.4 Tinea corporis; F17.200 Nicotine dependence, unspecified, uncomplicated
CPT/HCPCS: 99213; G0463

== ENCOUNTER 2024-07-16 21:50 | Emergency (ER) | payer OTHER, SELFPAY ==
[2024-07-16 21:57] VITALS: BP 174/97; PULSE 99; RESP 18; TEMP 36.6; O2SAT 100
[2024-07-16] MEDS: ASPIRIN 81 MG CHEWABLE TABLET 324 MG PO (22:05)
[2024-07-16 22:21] LABS: Basophils Absolute Auto 0.1 K/mm3 (0.0-0.1); Basophils Percent Auto 0.7 % (0.2-1.2); Eosinophils Absolute Auto 0.7 K/mm3 (0-0.3); Eosinophils Percent Auto 5.7 % (0-4.4); Hematocrit 46.1 % (42.0-52.0); Hemoglobin 15.7 g/dL (14.0-18.0); Immature Granulocyte Absolute 0.03 K/mm3 (0.00-0.031); Immature Granulocyte Percent A 0.2 % (0-0.5); Lymphocytes Absolute Auto 4.22 K/mm3 (0.9-3.2); Lymphocytes Percent Auto 34.6 % (18.3-44.2); Mean Corpuscular HGB Conc 34.1 g/dl (32-36); Mean Corpuscular Hemoglobin 32.2 pg (26-34); Mean Corpuscular Volume 94.5 fl (80-100); Mean Platelet Volume 10.2 fl (7.4-10.4); Monocytes Absolute Auto 0.8 K/mm3 (0.1-0.6); Monocytes Percent Auto 6.6 % (2.6-8.5); Neutrophils Absolute Auto 6.4 K/mm3 (1.3-6.7); Neutrophils Percent Auto 52.2 % (45.5-73.1); Platelet Count Result 266 k/mm3 (150-375); Red Blood Count 4.88 M/mm3 (4.6-6.20); Red Cell Distribution Width 13.8 % (11.5-14.5); White Blood Count 12.2 K/mm3 (4.5-10.0)
[2024-07-16 22:33] LABS: Alanine Aminotransferase 59 U/L (6-50); Albumin Level 4.5 g/dL (3.5-5.1); Alkaline Phosphatase 90 U/L (38-126); Anion Gap 10 mmol/L (4-12); Aspartate Amino Transferase 31 U/L (17-59); Bilirubin,Total 1.3 mg/dL (0.2-1.3); Blood Urea Nitrogen 11 mg/dL (9-20); Calcium 9.1 mg/dL (8.4-10.2); Carbon Dioxide 26 mmol/L (22-30); Chloride 100 mmol/L (98-107); Estimated CRCL calculation 105 ml/min; Estimated Glomerular Filt Rate > 60; Glucose 138 mg/dL (65-110); Lipase 57 U/L (23-300); Potassium 4.1 mmol/L (3.4-5.0); Sodium 136 mmol/L (137-145)
[2024-07-16 22:41] LABS: Prothrombin Time 13.7 Seconds (11.1-14.7)
[2024-07-16 22:45] LABS: Troponin I < 0.012 ng/mL (0.000-0.034)
[2024-07-17 01:12] VITALS: BP 144/99; PULSE 89; RESP 16; O2SAT 99
[2024-07-17 01:52] LABS: Troponin I < 0.012 ng/mL (0.000-0.034)
[2024-07-17 02:04] VITALS: PULSE 83
[2024-07-17 02:05] VITALS: BP 129/94; PULSE 85; RESP 20; TEMP 36.8; O2SAT 98
[2024-07-17] MEDS: BELLADONNA ALK/PHENOB ELIX 10 ML, MAG HYDROX/ALUMINUM HYD/SIMETH 30 ML, LIDOCAINE 2% VI... PO (02:27)
--- NOTE | 2024-07-17 02:44 | PC.NURSE ---
Before giving patient GI cocktail patient states if that's an indigestion pill then I am going to walk out .
[2024-07-17] MEDS: NITROGLYCERIN SL 0.4 MG TABLET SUBLINGUAL (03:03)
--- NOTE | 2024-07-17 03:04 | PC.NURSE ---
Patient vitals pre first nitro tablet: BP 135/98, HR 67, RR 18, and SPO2 96.
--- NOTE | 2024-07-17 03:11 | PC.NURSE ---
Post first nitro tablet vitals: HR 65, RR 23, SPO2 96, BP, 130/100. Patient reports pain went from a 10 to a 3. Second tablet given.
[2024-07-17 03:19] VITALS: BP 129/99; PULSE 74; RESP 18; TEMP 36.6; O2SAT 95
--- NOTE | 2024-07-17 03:36 | ED.GENADULT ---
HPI - General Adult General Chief complaint: Chest Pain Stated complaint: chest pain, jaw pain Time Seen by Provider: 07/17/24 02:10 History of Present Illness HPI narrative: Patient 38-year-old gentleman presents emergency department chief complaint of jaw and chest discomfort the patient thought that he had a tooth that was bothering him and then this evening noticed that he had a burning sensation of fullness feeling in his chest. Patient states that he has history of hypertension reports that he has had no diaphoresis did report that he felt nauseated with Related Data Allergies Allergy/AdvReac Type Severity Reaction Status Date / Time Penicillins Allergy Mild Swelling Verified 07/17/24 02:09 Review of Systems Review of Systems: A 10 system review of systems was completed on the patient and is negative except for what is stated in the HPI. Nursing and ancillary documentation was reviewed. PMFSH Past Medical History Medical History History of pilonidal cyst Depression Anxiety Surgical History Surgical History No significant past surgical history Family History Family History Other Asthma Cancer Depression Hypertension Social History Social History Smoking status: Current every day smoker Do You Feel Safe in your Home?: Yes Lack of Transportation: No Lack of Food: Sometimes True Current Housing: I Do Not Have Housing Concerned About Future Housing: YES Difficulty Paying Gas/Electric Bills: No Difficulty Paying for Meds: YES Currently Unemployed: YES Education: High School Diploma/GED Difficulty w/ Childcare or Family Care: No Gender identity (if verbalized by the patient): Male Exam Narrative: GENERAL: Well-appearing, well-nourished, and in no acute distress. HEAD: Normocephalic, atraumatic. EYES: PERRLA and EOMI. ENT: Nares clear, no rhinorrhea or epistaxis. Mucous membranes moist. NECK: Supple. CHEST: Clear to auscultation. No respiratory distress. HEART: Regular rate and rhythm. No murmur heard. Normal peripheral pulses. ABDOMEN: Soft, nontender, nondistended, normal active bowel sounds. EXTREMITIES: Normal range of motion. No edema. SKIN: Warm, dry, no rash. NEURO: No focal deficits. Alert and oriented x3. PSYCH: Normal mood and affect. Course Vital Signs Vital signs: Vital Signs Temperature 36.6 C 07/16/24 21:57 Pulse Rate 99 07/16/24 21:57 Respiratory Rate 18 07/16/24 21:57 Blood Pressure 174/97 H 07/16/24 21:57 Pulse Oximetry 100 07/16/24 21:57 Oxygen Delivery Room Air 07/16/24 21:57 Temperature 36.6 C 07/17/24 03:19 Pulse Rate 74 07/17/24 03:19 Respiratory Rate 1 L 07/17/24 03:19 Blood Pressure 129/99 H 07/17/24 03:19 Pulse Oximetry 95 07/17/24 03:19 Oxygen Delivery Room Air 07/17/24 02:05 Medical Decision Making MDM Narrative Medical decision making narrative: Differential diagnosis includes ACS, esophageal spasm, gastroesophageal reflux Chest x-ray showed no focal infiltrate 0 hour and 3 hour troponins were negative EKG showed no acute ischemic changes The patient is scheduled to see cardiology is count patient the 1st Vital Signs Vital Signs: Vital Signs Temperature 36.6 C 07/16/24 21:57 Pulse Rate 99 07/16/24 21:57 Respiratory Rate 18 07/16/24 21:57 Blood Pressure 174/97 H 07/16/24 21:57 Pulse Oximetry 100 07/16/24 21:57 Oxygen Delivery Room Air 07/16/24 21:57 Temperature 36.6 C 07/17/24 03:19 Pulse Rate 74 07/17/24 03:19 Respiratory Rate 1 L 07/17/24 03:19 Blood Pressure 129/99 H 07/17/24 03:19 Pulse Oximetry 95 07/17/24 03:19 Oxygen Delivery Room Air 07/17/24 02:05 Lab Data 07/16/24 22:14 07/16/24 22:14 Labs: Lab Results 07/16/24 07/17/24 Range/Units 22:14 01:11 WBC 12.2 H (4.5-10.0) K/mm3 RBC 4.88 (4.6-6.20) M/mm3 Hgb 15.7 (14.0-18.0) g/dL Hct 46.1 (42.0-52.0) % MCV 94.5 (80-100) fl MCH 32.2 (26-34) pg MCHC 34.1 (32-36) g/dl RDW 13.8 (11.5-14.5) % Plt Count 266 (150-375) k/mm3 MPV 10.2 (7.4-10.4) fl Immature Gran % (Auto) 0.2 (0-0.5) % Neut % (Auto) 52.2 (45.5-73.1) % Lymph % (Auto) 34.6 (18.3-44.2) % [place] % (Auto) 6.6 (2.6-8.5) % Eos % (Auto) 5.7 H (0-4.4) % Baso % (Auto) 0.7 (0.2-1.2) % Lymph # (Auto) 4.22 H (0.9-3.2) K/mm3 [place] # (Auto) 0.8 H (0.1-0.6) K/mm3 Eos # (Auto) 0.7 H (0-0.3) K/mm3 Baso # (Auto) 0.1 (0.0-0.1) K/mm3 Abs Immat Gran (auto) 0.03 (0.00-0.031) K/mm3 Absolute Neuts (auto) 6.4 (1.3-6.7) K/mm3 Absolute Nucleated RBC 0.000 (0.0-0.012) K/mm3 Nucleated RBC % 0.0 (0.0-0.2) % PT 13.7 (11.1-14.7) Seconds INR 1.0 APTT 30.0 (22.3-36.8) Seconds Sodium 136 L (137-145) mmol/L Potassium 4.1 (3.4-5.0) mmol/L Chloride 100 (98-107) mmol/L Carbon Dioxide 26 (22-30) mmol/L Anion Gap 10 (4-12) mmol/L BUN 11 (9-20) mg/dL Creatinine 1.07 (0.7-1.3) mg/dL Estim Creat Clear Calc 105 ml/min Estimated GFR > 60 (59 - ) Glucose 138 H (65-110) mg/dL Calcium 9.1 (8.4-10.2) mg/dL Total Bilirubin 1.3 (0.2-1.3) mg/dL AST 31 (17-59) U/L ALT 59 H (6-50) U/L Alkaline Phosphatase 90 (38-126) U/L Troponin I < 0.012 < 0.012 (0.000-0.034) ng/mL Total Protein 8.0 (6.3-8.2) g/dL Albumin 4.5 (3.5-5.1) g/dL Lipase 57 (23-300) U/L Discharge Plan Discharge Clinical Impression: Atypical chest pain Patient Disposition: Home, Self-Care Condition: Stable Instructions: Antibiotic Form, Chest Pain (ED) Additional Instructions: Please follow-up with your primary care provider and please follow-up per your scheduled appointment with cardiology Patient Language: Nepali Prescriptions: No Action clotrimazole 1 % cream 1 applic topical BID 28 Days Qty: 45 0RF ibuprofen 800 mg tablet 800 mg PO TID PRN (Reason: pain) Qty: 30 0RF Follow-up/Referrals: PHYSICIAN,TELECOMMUNICATIONS ANALYST [Primary Care Provider] - Quality HEART score for chest pain patients History: slightly suspicious ECG: normal Age: < or = to 45 years Risk factors: 1 or 2 risk factors Troponin: < or = to 1x normal limit Heart score: 1
== END 2024-07-17 03:58 | disposition home or self-care (01) ==
PROVIDERS: Emergency Provider Emergency Medicine
DX: R07.89 Other chest pain (principal); I10 Essential (primary) hypertension; F17.200 Nicotine dependence, unspecified, uncomplicated; R94.31 Abnormal electrocardiogram [ECG] [EKG]
CPT/HCPCS: 36415; 71046; 80053; 83690; 84484; 85025; 85610; 85730; 93005; 99284; A9270

== ENCOUNTER 2024-10-01 12:52 | Emergency (ER) | payer OTHER, SELFPAY ==
[2024-10-01 12:54] VITALS: BP 156/92; PULSE 102; RESP 18; TEMP 36.6; O2SAT 98
--- OUTSIDE RECORDS SUMMARY | 2024-10-01 12:56 | XMS_ITS | Encounter Summary ---
Author Organization [facility] Address [address] [place] [address] Support Name Relationship Address Phone Cole Dumont Significant other [address] [place] [address] jorje Alicea Extended family member [address] [place] [address] Care Team Providers Care Flask Cleaner Name Role Phone None, Physician Primary Care Provider Unavailabl e Reason for Visit * Reason Onset Date Comments Med Question 08/29/2023 Encounter Details Date Type Department Care Team (Late st Contact Info) Description 08/29/2023 Telephone [facility] - General Dermatology [address], [facility] [address] [place] [address] [place] [address] [facility] [address] [place] [address] Med Question Social History Tobacco Use Types Packs/Day Years Used Date Smoking Tobacco: Every Day Cigarettes Smokeless Tobacco: Never Alcohol Use Standard Drinks/Week Comments Yes 2 (1 standard drink = 0.6 oz pur e alcohol) occaisional PHQ-2 Answer Date Recorded PHQ2 TOTAL SCORE 0 03/18/2022 Sex and Gender Information Value Date Recorded Sex Assigned at Not on file Legal Sex Male 5:21 PM CDT Gender Identity Not on file Sexual Orientation Not on file documented as of this encounter Functional Status * Is person deaf or have serious hearing difficulty? Answer Date of Assessment Author No 11/01/2022 1:38 PM CDT Desirae Soriano RN * Is person blind or have serious difficulty seeing? Answer Date of Assessment Author No 11/01/2022 1:38 PM CDT Desirae Soriano RN * Does person have serious difficulty walking/climbing stairs? Answer Date of Assessment Author No 11/01/2022 1:38 PM CDT Desirae Soriano RN * Does person have difficulty dressing/bathing? Answer Date of Assessment Author No 11/01/2022 1:38 PM CDT Desirae Soriano RN * Does person have difficulty doing errands alone? Answer Date of Assessment Author No 11/01/2022 1:38 PM CDT Desirae Soriano RN documented as of this encounter Mental Status * Does person have difficulty concentrating/remembering/making decisions? Answer Entry Date Author No 11/01/2022 1:38 PM CDT Desirae Soriano RN documented in this encounter Miscellaneous Notes * Telephone Encounter - Raysa House - 09/05/2023 8:27 AM CDT Appeal faxed to [facility] for coverage of Cosentyx and pap paperwork started as well. Raysa House * Telephone Encounter - Carmina Paul MD - 09/02/2023 5:[address] 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 Thank you. * Telephone Encounter - Pedro Raya - 08/29/2023 1:40 PM CDT Pt called today concerning medications secukinumab (Cosentyx) 150 MG/ML SOAJ pen and secukinumab (Cosentyx) 150 MG/ML SOAJ pen starter pack. Pt states insurance requests a PA prior to approval. Please assist and advise. documented in this encounter Plan of Treatment Not on file documented as of this encounter Visit Diagnoses Not on filedocumented in this encounter Care Teams Flask Cleaner Relationship Specialty Start Date End Date None, Physician [address] [place] [address] PCP - General 08/20/24 documented as of this encounter
--- OUTSIDE RECORDS SUMMARY | 2024-10-01 12:56 | XMS_ITS | CONTINUITY OF CARE DOCUMENT ---
Author Name liat josue Address Unknown Organization [facility] Address [id number] [place] [address] [address] [place] [address] Phone [phone] Care Team Providers Care R D Manager Name Role Phone Meño POSEY, Yaneth Unavailable Yaneth Wilder MD Unavailable INSURANCE PROVIDERS Payer name Policy type / Coverage type [place] [employer] [place] [employer] (2) Medicaid [id number]
--- OUTSIDE RECORDS SUMMARY | 2024-10-01 12:56 | XMS_ITS | Encounter Summary ---
Author Organization [facility] Address [address] [facility] [place] [address] Support Name Relationship Address Phone Cole Dumont Significant other [address] [place] [address] jorje Alicea Extended family member [address] [place] [address] Care Team Providers Care Embossing Machine Operator Helper Name Role Phone None, Physician Primary Care Provider Unavailabl e Encounter Details Date Type Department Care Team (Late st Contact Info) Description 05/25/2024 Telephone [facility] - Dermatology [address] [place] [address], [facility] [place] [id number] Carmina Paul MD [address] [place] [address] [address] [place] [address] Social History Tobacco Use Types Packs/Day Years [...] of Assessment Author No 11/01/2022 1:38 PM LETIT Desirae Soriano RN * Does person have difficulty dressing/bathing? Answer Date of Assessment Author No 11/01/2022 1:38 PM LETIT Desirae Soriano RN * Does person have difficulty doing errands alone? Answer Date of Assessment Author No 11/01/2022 1:38 PM LETIT Desirae Soriano RN documented as of this encounter Mental Status * Does person have difficulty concentrating/remembering/making decisions? Answer Entry Date Author No 11/01/2022 1:38 PM LETIT Desirae Soriano RN documented in this encounter Miscellaneous Notes * Telephone Encounter - Carmina Paul MD - 06/06/2024 8:52 AM CST Gen Derm PCCs Please schedule pt with Dr. Simon in his gen derm clinic to discuss things further Thank you. F ORTHOPTIST * Telephone Encounter - Carmina Paul MD - 05/30/2024 5:[address] Simon and Gen Derm PCCs Please see my note below. Dr. Simon, I am referring pt to see you in your gen derm clinic so that you can evaluate his HS and see if there any surgical options you would recommend for him. This way he can also get a second opinion regarding his medical tx. Thank you. F ORTHOPTIST * Telephone Encounter - Carmina Paul MD - 05/30/2024 5:25 PM CST I spoke with Mr. Keating. He said that he has been getting the Cosentyx through their foundation for financial support. He says he is required to call them every month to order the refill. But he says that each time it is a significant hassle and that it is affecting his mental health. He says he has to go through several people and it is causing him stress and anxiety, and he would rather deal with the pain of the condition than having to call them each month. I asked if he had asked to talk to a cardroom supervisor there about the situation, he says he has but they did not help. He wants to switch to a different medication to tx his HS because he does not want to call them each month. I said that unfortunately our options are limited due to Humira not being a good option since he had mentioned a relative with MS. And infliximab for the same reason would not be a good option. I saw in his last note when he saw Dr. Quiñones that he was much improved on the Cosentyx, so it would be unfortunate to give up on it, and that normally it is a very expensive medicine, so am hoping he can continue to get it through the [facility] [place], but that hopefully he could talk to their mental health case manager again about the difficulty with his calls each month so that can expedite things for him in the future. In terms of other medical txs, we can discus other oral abx regimens. And also there are surgical treatment options. HOWEVER typically pts who do surgical procedures still need medical tx since its not a cure. I explained I do not do the surgical procedures for HS. One of my colleagues in Derm does some, . I will let him know about the pt and will ask his schedulers to schedule him for a consult with him. He can also this way get another opinion with Dr. Simon regarding his medical treatment. F ORTHOPTIST * Telephone Encounter - Courtney Umaña - 05/25/2024 3:40 PM CST Pt calling to speak with someone about requesting a new medication F ORTHOPTIST documented in this encounter Plan of Treatment Not on file documented as of this encounter Visit Diagnoses Not on filedocumented in this encounter Care Teams Embossing Machine Operator Helper Relationship Specialty Start Date End Date None, Physician [address] [place] [address] PCP - General 08/20/24 documented as of this encounter
--- OUTSIDE RECORDS SUMMARY | 2024-10-01 12:56 | XMS_ITS | Encounter Summary ---
Author Organization [facility] Address [address] [place] [address] Support Name Relationship Address Phone Cole Dumont Significant other [address] [place] [address] jorje Alicea Extended family member [address] [place] [address] Care Team Providers Care Nut Blanker Operator Name Role Phone None, Physician Primary Care Provider Unavailabl e Encounter Details Date Type Department Care Team (Late st Contact Info) Description 09/13/2023 Telephone [facility] - Centralized Scheduling [address] [place] [id number] Raysa House Social History Tobacco Use Types Packs/Day Years [...] * Telephone Encounter - Raysa House - 09/20/2023 12:43 PM CDT Spoke with patient today and [employer] claimed I never sent the application. I resent application with pa and appeal denial letters. Raysa House * Telephone Encounter - Raysa House - 09/15/2023 8:19 AM CDT Faxed application to [employer] including tax return, pa denial and appeal denial letter. Raysa House documented in this encounter Plan of Treatment Not on file documented as of this encounter Visit Diagnoses Not on filedocumented in this encounter Care Teams Nut Blanker Operator Relationship Specialty Start Date End Date None, Physician [address] [place] [address] PCP - General 08/20/24 documented as of this encounter
--- OUTSIDE RECORDS SUMMARY | 2024-10-01 12:56 | XMS_ITS | Clinical Summary ---
Author Organization [facility] [employer] Address [address] [place] [address] Support Name Relationship Address Phone Cole Dumont Significant other [address] [place] [address] jorje Alicea Extended family member [address] [place] [address] Care Team Providers Care Region Manager Name Role Phone None, Physician Primary Care Provider Unavailabl e Source Comments [facility] [employer],non-owned Affiliates and Associated Physician Practices is amultiple site organization consisting of ambulatory clinics and hospital sitesin [place], [place], [place] and [place]. This disclosure is being madepursuant to the Care Everywhere program and may not contain all information available regarding this patient. Last updated 18.[facility] [employer] Allergies Active Allergy Reactions Criticality Noted Date Comments Penicillins Anaphylaxis,Swelling High 06/17/2017 Medications * Be aware that medications may not be up to date on this document. Alwaysverify current medications with the patient. hydrOXYzine HCl (Atarax) 25 MG tabletIndicati ons:Other pruritus Take 1 or 2 tablets every 12 hours as needed 30 tablet 5 4 Active secukinumab (Cosentyx) 150 MG/ML SOAJ penIndications :Other psoriasis Inject 300 (three hundred) mg subcutaneously every 14 days 4 mL 5 5 Active Active Problems Problem Noted Date Diagnosed Date Low serum vitamin B12 02/07/2024 Migraine 02/07/2024 High risk medications (not anticoagulants) long- term use 02/07/2024 Other pruritus 02/07/2024 Anxiety 01/27/2022 Low back pain 01/27/2022 Pain in scrotum 01/27/2022 Abdominal pain 01/27/2022 Pilonidal cyst with abscess 01/27/2022 Vitamin D deficiency 08/03/2021 Folliculitis 06/25/2021 Hidradenitis suppurativa 06/25/2021 Resolved Problems Problem Noted Date Diagnosed Date Resolved Date Systemic lupus erythematosus 01/27/2022 01/27/2022 Encounters Date Type Department Care Team Description 09/05/2024 Telephone [facility] - Rheumatology [address] [place] [phone] Angelina Carias MD LABS ONLY 09/05/2024 Telephone [facility] - Rheumatology [address] [place] [phone] Angelina Carias MD LABS ONLY (Pt wanting results from labs) 08/30/2024 Telephone [facility] - Rheumatology [address] [place] [phone] Angelina Carias MD Results 08/20/2024 2:20 PM CDT - 08/20/2024 11:59 PM CDT Hospital Encounter [facility] OP [address] [place] [address] Albaro Fischer MD Discharge Disposition: Home or Self Care 08/20/2024 2:20 PM CDT - 08/20/2024 11:59 PM CDT Hospital Encounter [facility] OP DRAW STATION [address] [place] [address] Discharge Disposition: Home or Self Care 08/20/2024 1:00 PM CDT Office Visit [facility] - Rheumatology [address] [place] [phone] Albaro Fischer MD Zia, Aisha, MD Polyarthralgia (Primary Dx); Other psoriasis 08/20/2024 Travel 08/17/2024 Telephone [facility] - Rheumatology [address] [place] [phone] Angelina Carias MD Appointment 07/23/2024 Orders Only [facility] - General Dermatology [address] [place], [place] [address]y [address], [address] [place] [address] Carmina Paul MD Other psoriasis 07/23/2024 Telephone [facility] - Dermatology [address] [place] [phone] Jimmie Simon MD Med Question (pt waiting since 07/17/24 for a call to discuss Cosentex dosage change.) 07/11/2024 1:50 PM TECHNICAL ADMINISTRATOR Office Visit [facility] - Dermatology [address] [place] [phone] Jimmie Simon MD Hidradenitis suppurativa (Primary Dx) 07/11/2024 Travel from Last 3 Months Family History Medical History Relation Name Comments None Known Brother None Known Father None Known Maternal Aunt None Known Maternal Grandfather None Known Maternal Grandmother None Known Maternal Uncle None Known Mother None Known Paternal Aunt None Known Paternal Grandfather None Known Paternal Grandmother None Known Paternal Uncle None Known Sister Asthma Neg Hx CVA Neg Hx Cancer - Breast Neg Hx Cancer - Other Neg Hx Cancer - Skin, Melanoma Neg Hx Cancer - Skin, Non Melanoma Neg Hx Eczema Neg Hx Hemophilia Neg Hx Psoriasis Neg Hx Relation Name Status Comments Brother Father Maternal Aunt Maternal Grandfather Maternal Grandmother Maternal Uncle Mother Paternal Aunt Paternal Grandfather Paternal Grandmother Paternal Uncle Sister Social History Tobacco Use Types Packs/Day Years Used Date Smoking Tobacco: Every Day Cigarettes Smokeless Tobacco: Never Tobacco Cessation:Ready to Q uit: Not Asked; Counseling Given: Not Answered Alcohol Use Standard Drinks/Week Comments Yes 2 (1 standard drink = 0.6 oz pur e alcohol) occaisional PHQ-2 Answer Date Recorded PHQ2 TOTAL SCORE 0 03/18/2022 Sex and Gender Information Value Date Recorded Sex Assigned at Not on file Legal Sex Male 5:21 PM CDT Gender Identity Not on file Sexual Orientation Not on file Last Filed Vital Signs Vital Sign Reading Time Taken Comments Blood Pressure 139/91 08/20/2024 1:15 PM CDT Pulse 87 08/20/2024 1:11 PM CDT Temperature 37 C (98.6 F) 08/20/2024 1:11 PM CDT Respiratory Rate 20 03/06/2023 2:32 AM CDT Oxygen Saturation 100% 03/05/2023 8:35 PM CDT Inhaled Oxygen Concentration - - Weight 110 kg (242 lb 6.4 oz) 08/20/2024 1:11 PM CDT Height 179.1 cm (5' 10.5 ) 08/20/2024 1:11 PM CD T Body Mass Index 34.29 08/20/2024 1:11 PM CDT Plan of Treatment Health Maintenance Due Date Last Done Comments DTAP/TDAP/TD VACCINES (1 - Tdap) 10/26/2006 HEPATITIS B VACCINE (1 of 3 - 19+ 3-dose series) 10/26/2006 PNEUMOCOCCAL VACCINE (1 of 2 - PCV) 10/26/2006 COVID-19 VACCINE (2023-2 5 season) 2024 12/07/2020, 11/09/2020 DEPRESSION SCREENING 05/16/2024 03/18/2022 INFLUENZA VACCINE (Season Ended) 2025 04/20/2016 ZOSTER VACCINE (1 of 2) 10/26/2037 HEPATITIS C SCREENING Completed 08/20/2024 , 02/23/2023 HIV SCREENING Completed 08/20/2024, 02/02/2024 HIB VACCINE Aged Out No longer eligi ble based on patient's age to complete this topic HPV VACCINE Aged Out No longer eligi ble based on patient's age to complete this topic MENINGOCOCCAL (Group B) VACCINE SHARED DECISION-MAKING Aged Out No longer eligible based on patient's age to complete this topic MENINGOCOCCAL GROUPS A/C/Y/W VACCINE Aged Out No longer eligible b ased on patient's age to complete this topic Medical Devices Implanted Type Area Production Troubleshooter Device Identifier Shelf Expiration Date Model / Serial / Lot Nivis Fibrillar Collagen Pack 1g Implanted:Qty: 1 on 11/01/2022 by Stephan Copeland MD at [facility] N/A: Buttocks 11/12/2024 [id number] / / [id number] Nivis Fibrillar Collagen Pack 2g Implanted:Qty: 1 on 11/01/2022 by Stephan Copeland MD at [facility] N/A: Buttocks 11/12/2024 [id number] / / [id number] Procedures Procedure Name Priority Date/Time Associated Diagnosis Comments URINALYSIS W/MICROSCOPIC REFLEX TO CULTURE Routine 08/20/2024 4:49 PM CDT Polyarthralgia DNA ANTIBODY DS CRITHIDIA TITER Routine 08/20/2024 3:24 PM CDT Polyarthralgia ZURITA/WAREHOUSE SUPERVISOR 3RD SHIFT (AMY) ANTIBODY IGG Routine 08/20/2024 3:24 PM CDT Polyarthralgia SS-A (SJOGREN'S) 52+60 ANTIBODIES Routine 08/20/2024 3:24 PM CDT Polyarthralgia HLA TYPING B27 Routine 08/20/2024 3:24 PM CDT Polyarthralgia HEPATITIS C ANTIBODY Routine 08/20/2024 3:24 PM CDT Polyarthralgia HEPATITIS B SURFACE ANTIGEN W RFLX CONFIRMATION Routine 08/20/2024 3:24 PM CDT Polyarthralgia HEPATITIS B CORE ANTIBODY TOTAL Routine 08/20/2024 3:24 PM CDT Polyarthralgia HIV-1 HIV-2 ANTIBODY + HIV P24 AG PANEL Routine 08/20/2024 3:24 PM CDT Polyarthralgia CK BLOOD Routine 08/20/2024 3:24 PM CDT Polyarthralgia ALDOLASE Routine 08/20/2024 3:24 PM CDT Polyarthralgia COMPLEMENT C4 Routine 08/20/2024 3:24 PM CDT Polyarthralgia COMPLEMENT C3 Routine 08/20/2024 3:24 PM CDT Polyarthralgia SS-B (SJOGREN'S) ANTIBODY Routine 08/20/2024 3:24 PM CDT Polyarthralgia ZURITA (SM) ANTIBODY AMY Routine 08/20/2024 3:24 PM CDT Polyarthralgia SCLERODERMA 70 (SCL) ANTIBODY Routine 08/20/2024 3:24 PM CDT Polyarthralgia DNA ANTIBODY DOUBLE STRANDED Routine 08/20/2024 3:24 PM CDT Polyarthralgia CENTROMERE ANTIBODY Routine 08/20/2024 3 :24 PM CDT Polyarthralgia CHROMATIN ANTIBODY Routine 08/20/2024 3: 24 PM CDT Polyarthralgia PATRICIA HEP-2 IGG BY IFA Routine 08/20/2024 3:24 PM CDT Polyarthralgia PATRICIA BLOOD SCREEN W/REFLEX TITER Routine 08/20/2024 3:24 PM CDT Polyarthralgia RHEUMATOID FACTOR BLOOD QUANTITATIVE Routine 08/20/2024 3:24 PM CDT Polyarthralgia CYCLIC CITRULLINATED PEPTIDE(CCP) AB IGG Routine 08/20/2024 3:24 PM CDT Polyarthralgia ERYTHROCYTE SEDIMENTATION RATE Routine 08/20/2024 3:24 PM CDT Polyarthralgia C-REACTIVE PROTEIN Routine 08/20/2024 3: 24 PM CDT Polyarthralgia COMPREHENSIVE METABOLIC PANEL Routine 08/20/2024 3:24 PM CDT Polyarthralgia CBC W AUTO DIFFERENTIAL Routine 08/20/2024 3:24 PM CDT Polyarthralgia XR FOOT LEFT 3VW OR MORE Routine 08/20/2024 2:40 PM CDT Polyarthralgia XR ELBOW RIGHT 2VW Routine 08/20/2024 2: 40 PM CDT Polyarthralgia XR ELBOW LEFT 2VW Routine 08/20/2024 2:4 0 PM CDT Polyarthralgia XR ANKLE RIGHT 2VW Routine 08/20/2024 2: 40 PM CDT Polyarthralgia XR ANKLE LEFT 2VW Routine 08/20/2024 2:4 0 PM CDT Polyarthralgia XR HAND RIGHT 3VW OR MORE Routine 08/20/2024 2:40 PM CDT Polyarthralgia XR HAND LEFT 3VW OR MORE Routine 08/20/2024 2:40 PM CDT Polyarthralgia XR FOOT RIGHT 3VW OR MORE Routine 08/20/2024 2:40 PM CDT Polyarthralgia NE KENALOG 40 INJ Routine 07/11/2024 2:4 2 PM TECHNICAL ADMINISTRATOR Hidradenitis suppurativa NE INTRALESIONAL INJECTION(S) 7 OR LESS Routine 07/11/2024 2:42 PM TECHNICAL ADMINISTRATOR Hidradenitis suppurativa from Last 3 Months Results * URINALYSIS W/MICROSCOPIC REFLEX TO CULTURE (08/20/2024 4:49 PM CDT) Color UA Yellow Yellow, Straw 08/20/2024 5:47 PM CDT [facility] Clarity UA Clear Clear 08/20/2024 5:47 PM CDT [facility] Glucose UA Normal Normal 08/20/2024 5:47 PM CDT [facility] Bilirubin UA Negative Negative 08/20/2024 5:47 PM CDT [facility] Ketone UA Negative Negative 08/20/2024 5:47 PM CDT [facility] Specific Boles UA 1.020 1.005 - 1.030 08/20/2024 5:47 PM CDT [facility] Blood UA Negative Negative 08/20/2024 5:47 PM CDT [facility] pH UA 6.5 5.0 - 9.0 pH 08/20/2024 5:47 PM CDT [facility] Protein UA Negative Negative 08/20/2024 5:47 PM CDT [facility] Urobilinogen UA Normal Normal mg/dL 025 5:47 PM CDT [facility] Nitrite UA Negative Negative 08/20/2024 5:47 PM CDT [facility] Leukocyte UA Negative Negative 08/20/2024 5:47 PM CDT [facility] RBC UA 0-2 0 - 5 # /hpf 08/20/2024 5:47 PM CDT [facility] WBC UA 0-5 0 - 5 # /hpf 08/20/2024 5:47 PM CDT [facility] Bacteria UA None Seen None Seen 08/20/2024 5:47 PM CDT [facility] Squamous Epithelial Cells 0-2 0 - 5 /hpf 08/20/2024 5:47 PM T [facility] Mucus UA 1+ /LPF 08/20/2024 5:47 PM CDT [facility] Urine URINE SPECIMEN OBTAINED BY CLEAN CATCH PROCEDURE / Unknown Collection / Unknown 08/20/2024 4:49 PM CDT 08/20/2024 5:20 PM CDT Narrative [facility] - 08/20/2024 5:47 PM CDT us Albaro Fischer MD LAB - URINALYSIS ORDERABLES Juani l Result [address] [address], [facility] [phone] * PATRICIA HEP-2 IGG BY IFA (08/20/2024 3:24 PM CDT) PATRICIA HEp-2 IgG <1:80 <1:80 08/23/2024 10:36 AM CDT [facility] ([facility]) PATRICIA Interpretive Comment See Note 08/23/2024 10:36 AM CDT [facility] ([facility]) Comment: Antinuclear antibodies by IFA negative for homogeneous, speckled, nucleolar, centromere, and nuclear dots patterns. Cytoplasmic antibodies by IFA negative for reticular/AMA, discrete/GW body-like, polar/golgi-like, rods and rings, and cytoplasmic speckled patterns. INTERPRETIVE INFORMATION: PATRICIA Interpretive Comment Presence of antinuclear antibodies (PATRICIA) is a hallmark feature of systemic autoimmune rheumatic diseases (SARD). However, PATRICIA lacks diagnostic specificity and is associated with a variety of diseases (cancers, autoimmune, infectious, and inflammatory conditions) and may also occur in healthy individuals in varying prevalence. The lack of diagnostic specificity requires confirmation of positive PATRICIA by more specific serologic tests. PATRICAI (nuclear reactivity) positive patterns reported include centromere, homogeneous, nuclear dots, nucleolar, or speckled. PATRICIA (cytoplasmic reactivity) positive patterns reported include reticular/AMA, discrete/GW body-like, polar/golgi-like, cytoplasmic speckled or rods and rings. All positive patterns are reported to endpoint titers (1:2560). Reported patterns may help guide differential diagnosis, although they may not be specific for individual antibodies or diseases. Mitotic staining patterns not reported. Negative results do not necessarily rule out SARD. Performed By: [facility] [address] [place] [address] Landscaping Supervisor: Artie Wilson MD, PhD CLIA Number: [id number] Blood BLOOD SPECIMEN / Unknown Lab Venipuncture / Unknown 08/20/2024 3:24 PM CDT 08/20/2024 3:31 PM CDT Albaro Fischer MD LAB - SEROLOGY ORDERABLES Final Result [facility] [address] [place] [address] * SS-A (SJOGREN'S) 52+60 ANTIBODIES (08/20/2024 3:24 PM CDT) [facility] SS-A 52 Antibody 2 0 - 40 AU/mL 08/23/2024 5:14 AM CDT [facility] ([facility]) Comment: INTERPRETIVE INFORMATION: SSA-52 (Ro52) (AMY) Antibody, IgG 29 AU/mL or Less ............. Negative 30 - 40 AU/mL ................ Equivocal 41 AU/mL or Greater .......... Positive SSA-52 (Ro52) and/or SSA-60 (Ro60) antibodies are associated with a diagnosis of Sjogren syndrome, systemic lupus erythematosus (SLE), and systemic sclerosis. SSA-52 antibody overlaps significantly with the major SSc-related antibodies. SSA-52 (Ro52) antibody occurs frequently in patients with inflammatory myopathies, often in the presence of interstitial lung disease. SS-A 60 Antibody 0 0 - 40 AU/mL 08/23/2024 5:14 AM CDT [facility] ([facility]) Comment: REFERENCE INTERVAL: SSA-60 (Ro60) (AMY) Antibody, IgG 29 AU/mL or Less ............. Negative 30 - 40 AU/mL ................ Equivocal 41 AU/mL or Greater .......... Positive Performed By: [facility] [address] [place] [address] Landscaping Supervisor: Artie Wilson MD, PhD CLIA Number: [id number] Blood BLOOD SPECIMEN / Unknown Lab Venipuncture / Unknown 08/20/2024 3:24 PM CDT 08/20/2024 3:31 PM CDT Albaro Fischer MD LAB - CHEMISTRY ORDERABLES Final Result [facility] [address] [place] [address], [facility] * ZURITA/WAREHOUSE SUPERVISOR 3RD SHIFT (AMY) ANTIBODY IGG (08/20/2024 3:24 PM CDT) Zurita/WAREHOUSE SUPERVISOR 3RD SHIFT (AMY) Antibody IgG 10 0 - 19 Units 08/23/2024 5:24 AM CDT [facility] ([facility]) Comment: INTERPRETIVE INFORMATION: Zurita/WAREHOUSE SUPERVISOR 3RD SHIFT (AMY) Antibody, IgG 19 Units or Less ............. Negative 20 to 39 Units ............... Weak Positive 40 to 80 Units ............... Moderate Positive 81 Units or greater .......... Strong Positive Zurita/WAREHOUSE SUPERVISOR 3RD SHIFT antibodies are frequently seen in patients with mixed connective tissue disease (MCTD) and are also associated with other systemic autoimmune rheumatic diseases (SARDs) such as systemic lupus erythematosus (SLE), systemic sclerosis, and myositis. Antibodies targeting the Zurita/WAREHOUSE SUPERVISOR 3RD SHIFT antigenic complex also recognize Zurita antigens, therefore, the Zurita antibody response must be considered when interpreting these results. Performed By: [facility] [address] [place] [address] Landscaping Supervisor: Artie Wilson MD, PhD CLIA Number: [id number] Blood BLOOD SPECIMEN / Unknown Lab Venipuncture / Unknown 08/20/2024 3:24 PM CDT 08/20/2024 3:31 PM CDT us Albaro Fischer MD LAB - CHEMISTRY ORDERABLES Final Result Performing Organization Address [facility] de Phone Number [facility]) [address] [place] [address] * CHROMATIN ANTIBODY (08/20/2024 3:24 PM CDT) [facility] Chromatin Antibody 9 0 - 19 Units 08/23/2024 12:13 AM CDT [facility] Comment: INTERPRETIVE INFORMATION: Chromatin Antibody, IgG 19 Units or less: Negative 20 - 60 Units: Moderate Positive 61 Units or greater: Strong Positive The presence of anti-chromatin antibodies may be useful in the diagnosis of systemic lupus erythematosus (SLE) or drug-induced lupus (DIL) and have been reported to be predictive of lupus nephritis, especially when antibody levels are high. Performed By: [facility] [address] [place] [address] Landscaping Supervisor: Artie Wilson MD, PhD CLIA Number: [id number] Blood BLOOD SPECIMEN / Unknown Lab Venipuncture / Unknown 08/20/2024 3:24 PM CDT 08/20/2024 3:31 PM CDT us Albaro Fischer MD LAB - SEROLOGY ORDERABLES Final Result Performing Organization Address [facility] de Phone Number [facility] ([facility]) [address] [place] [address] * HIV-1 HIV-2 ANTIBODY + HIV P24 AG PANEL (08/20/2024 3:24 PM CDT) [facility] HIV Antigen/Antibod y 1 & 2 Non-reacti ve Non-react isaías 08/20/2024 7:44 PM CDT [facility] Comment:No Laboratory eviden ce of HIV infection. Blood BLOOD SPECIMEN / Unknown Lab Venipuncture / Unknown 08/20/2024 3:24 PM CDT 08/20/2024 3:31 PM CDT us Albaro Fischer MD LAB - CHEMISTRY ORDERABLES Final Result [facility] [address] [place] [phone], [facility] [phone] * DNA ANTIBODY DS CRITHIDIA TITER (08/20/2024 3:24 PM CDT) [facility] dsDNA Antibody IgG <1:10 <1:10 2024 5:28 AM CDT [facility] ([facility]) Comment: INTERPRETIVE INFORMATION: Double-Stranded DNA (dsDNA) Antibody, IgG by IFA (using Crithidia luciliae) Positivity for anti-double stranded DNA (anti-dsDNA) IgG antibody is a diagnostic criterion of systemic lupus erythematosus (SLE). The presence of the anti-dsDNA IgG antibody is identified by IFA titer (Crithidia luciliae indirect fluorescent test [EUGENIO'). EUGENIO is highly specific for SLE with a sensitivity of 50-60 percent. Some patients with early or inactive SLE may be positive for anti-dsDNA IgG by SKY but negative by EUGENIO. If the EUGENIO result is negative but the patient has a positive SKY and clinical suspicion remains, consider antinuclear antibody (PATRICIA) testing by IFA. Additional information and recommendations for testing may be found at [email or web address]. Performed By: [facility] [address] [place] [address] Landscaping Supervisor: Artie Wilson MD, PhD CLIA Number: [id number] Blood BLOOD SPECIMEN / Unknown Lab Venipuncture / Unknown 08/20/2024 3:24 PM CDT 08/20/2024 3:31 PM CDT us Albaro Fischer MD LAB - SEROLOGY ORDERABLES Final Result Performing Organization Address City/[facility]/ZIP Co de Phone Number [facility]) [address] [place] [address] * ZURITA (SM) ANTIBODY AMY (08/20/2024 3:24 PM CDT) [facility] Zurita (AMY) Antibody 2 0 - 40 AU/mL 08/22/2024 11:02 PM CDT [facility] ([facility]) Comment: INTERPRETIVE INFORMATION: Zurita (AMY) Antibody, IgG 29 AU/mL or Less ............. Negative 30 - 40 AU/mL ................ Equivocal 41 AU/mL or Greater .......... Positive Zurita antibody is highly specific (greater than 90 percent) for systemic lupus erythematosus (SLE) but only occurs in 30-35 percent of SLE cases. The presence of antibodies to Zurita has variable associations with SLE clinical manifestations. Performed By: [place] [address] Landscaping Supervisor: Artie Wilson MD, PhD CLIA Number: [id number] Blood BLOOD SPECIMEN / Unknown Lab Venipuncture / Unknown 08/20/2024 3:24 PM CDT 08/20/2024 3:31 PM CDT us Albaro Fischer MD LAB - CHEMISTRY ORDERABLES Final Result Performing Organization Address [facility]/ZIP Co de Phone Number [facility]) [address] [place] [address] * RHEUMATOID FACTOR BLOOD QUANTITATIVE (08/20/2024 3:24 PM CDT) [facility] Rheumatoid Factor <15 <30 IU/mL 08/20/2024 7:14 PM CDT [facility] Rheumatoid Factor Screen Negative Negative 08/20/2024 7:14 PM CDT [facility] Blood BLOOD SPECIMEN / Unknown Lab Venipuncture / Unknown 08/20/2024 3:24 PM CDT 08/20/2024 3:31 PM CDT us Albaro Fischer MD LAB - CHEMISTRY ORDERABLES Final Result Performing Organization Address City/[facility]/ZIP Co de Phone Number [address] [address], [facility] [phone] * C-REACTIVE PROTEIN (08/20/2024 3:24 PM CDT) C-Reactive Protein <0.5 <=0.5 mg/dL 08/20/2024 6:45 PM CDT [facility] Blood BLOOD SPECIMEN / Unknown Lab Venipuncture / Unknown 08/20/2024 3:24 PM CDT 08/20/2024 3:56 PM CDT us Albaro Fischer MD LAB - CHEMISTRY ORDERABLES Final Result Performing Organization Address City/[facility]/ZIP Co de Phone Number [address] [address], [place] [phone] * PATRICIA BLOOD SCREEN W/REFLEX TITER (08/20/2024 3:24 PM CDT) Pathologist [facility] PATRICIA IgG None Detected None Detected 08/23/2024 7:59 PM CDT [facility] ([facility]) Comment: If suspicion of connective tissue disease is strong and PATRICIA EIA is negative, consider testing for PATRICIA by IFA ([id number]). INTERPRETIVE INFORMATION: Anti-Nuclear Antibodies (PATRICIA), IgG by SKY Antinuclear Antibodies (PATRICIA), IgG by SKY: PATRICIA specimens are screened using enzyme-linked immunosorbent assay (SKY) methodology. All SKY results reported as Detected are further tested by indirect fluorescent assay (IFA) using HEp-2 substrate with an IgG-specific conjugate. The PATRICIA SKY screen is designed to detect antibodies against dsDNA, histones, SS-A (Ro), SS-B (La), Zurita, Zurita/WAREHOUSE SUPERVISOR 3RD SHIFT, Scl-70, Georgette-1, centromeric proteins, other antigens extracted from the HEp-2 cell nucleus. PATRICIA SKY assays have been reported to have lower sensitivities than PATRICIA IFA for systemic autoimmune rheumatic diseases (SARD). Negative results do not necessarily rule out SARD. Performed By: [facility] [address] [place] [address] Landscaping Supervisor: Artie Wilson MD, PhD CLIA Number: [id number] Blood BLOOD SPECIMEN / Unknown Lab Venipuncture / Unknown 08/20/2024 3:24 PM CDT 08/20/2024 3:31 PM CDT us Albaro Fischer MD LAB - CHEMISTRY ORDERABLES Final Result Performing Organization Address [facility] Co de Phone Number [facility] ([facility]) [address] [place] [address] * HLA TYPING B27 (08/20/2024 3:24 PM CDT) [facility] HLA-B27 Negative Negative 08/21/2024 4:29 PM CDT [facility] ([facility]) Comment: INTERPRETIVE INFORMATION: HLA-B27 HLA-B27 is a serologically defined allele of the human HLA-B locus. The presence of the HLA-B27 antigen is strongly associated with ankylosing spondylitis and related disorders. This test was developed and its performance characteristics determined by [facility]. It has not been cleared or approved by the [place] Food and Drug Administration. This test was performed in a CLIA certified laboratory and is intended for clinical purposes. Performed By: [facility] [address] [place] [address] Landscaping Supervisor: Artie Wilson MD, PhD CLIA Number: [id number] Blood BLOOD SPECIMEN / Unknown Lab Venipuncture / Unknown 08/20/2024 3:24 PM CDT 08/20/2024 3:31 PM CDT us Albaro Fischer MD LAB - CHEMISTRY ORDERABLES Final Result Performing Organization Address [facility] Co de Phone Number [facility] ([facility]) [address] [place] [address] * CENTROMERE ANTIBODY (08/20/2024 3:24 PM CDT) [facility] Centromere Antibody 0 0 - 40 AU/mL 08/23/2024 5:33 AM CDT [facility] ([facility]) Comment: INTERPRETIVE INFORMATION: Centromere Ab, IgG 29 AU/mL or Less ............. Negative 30 - 40 AU/mL ................ Equivocal 41 AU/mL or Greater .......... Positive When detected by this multiplex bead assay, the presence of centromere antibodies is mainly associated with CREST syndrome, a variant of systemic sclerosis (SSc). These antibodies target the centromere B, a dominant antigen of the centromeric complex associated with the centromere pattern observed in antinuclear antibody (PATRICIA) testing by [facility]. Centromere antibodies may also be seen in a varying percentage of patients with other autoimmune diseases, including diffuse cutaneous SSc, Raynaud syndrome, interstitial pulmonary fibrosis, autoimmune liver disease, systemic lupus erythematosus (SLE) and rheumatoid arthritis (RA). A negative result indicates no detectable IgG antibodies to centromere B. If the result is negative but clinical suspicion for SSc is strong, consider testing for PATRICIA by [facility] along with other antibodies associated with SSc, including Scl-70, U3-WAREHOUSE SUPERVISOR 3RD SHIFT, PM/Scl, or Th/To. Performed By: [facility] [address] [place] [id number] Landscaping Supervisor: Artie Wilson MD, PhD CLIA Number: [id number] Specimen (Source) Anatomical Location / Laterality Collection Method / Volume Collection Time [id number]|2024-10-01 13:58:49|2024-10-01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
--- OUTSIDE RECORDS SUMMARY | 2024-10-01 12:56 | XMS_ITS | Encounter Summary ---
Author Organization [facility] Address [address] [place] [address] Support Name Relationship Address Phone Cole Dumont Significant other [address] [place] [address] jorje Alicea Extended family member [address] [place] [address] Care Team Providers Care Radio Producer Name Role Phone None, Physician Primary Care Provider Unavailabl e Reason for Visit * Reason Onset Date Comments General 10/14/2023 Encounter Details Date Type Department Care Team (Late st Contact Info) Description 10/14/2023 Telephone [facility] - General Dermatology [address] [place] [address] Carmina Paul MD [address] [place] [address] General Social History Tobacco Use Types Packs/Day Years [...] Telephone Encounter - Carmina Paul MD - 10/28/2023 9:03 PM CDT I spoke with pt He said he was at his cousins house and she has mrsa he found out He said he has some new sores and is going to go to urgent care to get tested I said that would be good, should get bacterial swab done I asked how the cosentyx is doing , he said he started it 5 weeks ago an already noting sig improvement in drainage and also is less fatigued I said that is really good to hear * Telephone Encounter - Adama Cueva PA-C - 10/25/2023 5:33 PM CDT Patient called. Discussed concern about coming into contact with MRSA. 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 He stated that his HS wounds may be taking longer to heal since he found out his cousin was diagnosed with MRSA. I told the patient that this may not mean that he has a diagnosis of MRSA but we can get a culture to find out. I advised him that a culture would be best to confirm any active infection. Mupirocin can also be given to help with staph eradication. The patient has an appointment with Dr. Paul next week where a culture can be obtained. I said we could also try to see him another day if that day didn't work. He was angry that it took longer to contact him. The patient started to be verbally aggressive overthe phone stating that we do not know what we were doing and he didn't want to talk to any [facility] physician bookkeeping assistant . He will only maybe talk to Dr. Paul. I apologized for any misunderstandings. Patient immediately hung up the phone while I was explaining next steps. Adama Cueva PA-C * Telephone Encounter - Adama Cueva PA-C - 10/21/2023 5:19 PM CDT Patient called. No answer LVM explaining that coming into contact may not mean someone has MRSA. Ifhe needs to be seen, we can see him but if no symptoms have presented, then he likely does not havean infection. Adama Cueva PA-C * Telephone Encounter - Carmina Paul MD - 10/21/2023 2:13 PM CDT Adama Can you please call pt If he came into contact with someone with mrsa, it does not automatically mean he now has mrsa Or did he himself test positive for MRSA, if so, whoever did the culture should be the one to starthim on oral abx because they would have the sensitivities He can always schedule an appointment with me or you if needed Thank you. * Telephone Encounter - Pedro Raya - 10/14/2023 9:22 AM CDT Pt called today concerning contact with mrsa. Pt was told to go to get treated but is questioning doing so due to a medication they are due to start. Please assist and advise. documented in this encounter Plan of Treatment Not on file documented as of this encounter Visit Diagnoses Not on filedocumented in this encounter Care Teams Radio Producer Relationship Specialty Start Date End Date None, Physician [address] [place] [address] PCP - General 08/20/24 documented as of this encounter
--- OUTSIDE RECORDS SUMMARY | 2024-10-01 12:56 | XMS_ITS | Encounter Summary ---
Author Organization [facility] Address [address] [facility] [address] Support Name Relationship Address Phone Cole Dumont Significant other [address] [place] [address] jorje Alicea Extended family member [address] [place] [address] Care Team Providers Care Liquid Sugar Fortifier Name Role Phone None, Physician Primary Care Provider Unavailabl e Encounter Details Date Type Department Care Team (Late st Contact Info) Description 04/16/2024 Telephone [facility] - Dermatology [address] [place] [address], [facility] [place] [phone] Carmina Paul MD [address] [place] [address] [address] [facility] [address] Social History Tobacco Use Types [...] Author No 11/01/2022 1:38 PM CDT Desirae oSriano RN * Does person have difficulty doing errands alone? Answer Date of Assessment Author No 11/01/2022 1:38 PM Desirae Gandara RN documented as of this encounter Mental Status * Does person have difficulty concentrating/remembering/making decisions? Answer Entry Date Author No 11/01/2022 1:38 PM Desirae Gandara RN documented in this encounter Miscellaneous Notes * Telephone Encounter - Raysa House - 05/30/2024 5:59 PM CST Faxed signed cover letter and rx to [facility] patient assistance program. Raysa House- Pharmacy Parking Patroller (Dermatology) [employer]ER [employer] P[employer] * Telephone Encounter - Raysa House - 04/25/2024 5:07 PM CST Sent [employer] message to patient to send over images of insurance card and proof of income needed for PAP. Raysa House- Pharmacy Parking Patroller (Dermatology) [employer] * Telephone Encounter - Raysa House - 04/18/2024 3:22 PM CST Faxed Provider portion of PAP application to [facility]. Raysa House- Pharmacy Parking Patroller (Dermatology) [employer] P[employer]ER * Telephone Encounter - Yina Benz - 04/18/2024 3:00 PM CST Patient states he completed his application and faxed to patient assistance program. States he called 04/17/24 to get an update and was told they are waiting to hear back from Dr. Paul. I don't see any current forms in patient's chart Advised patient we will keep him posted Yina Benz [employer] PATCHER * Telephone Encounter - Berta Hallman PA - 04/17/2024 2:43 PM CST MA please call patient and document what he needs in chart. If he is asking about patient assistance forms for 2024 please advise him to complete his portion and we will complete our portion before the end of the year along with the other patients forms we complete. Berta KER AND PATCHER * Telephone Encounter - Courtney Umaña - 04/16/2024 1:21 PM CST Pt callingto speak with Dr Paul about filling out paperwork for [facility] Patient Assistance program [employer]ER [employer] PATCHER documented in this encounter Plan of Treatment Not on file documented as of this encounter Visit Diagnoses Not on filedocumented in this encounter Care Teams Liquid Sugar Fortifier Relationship Specialty Start Date End Date None, Physician [address] [place] [address] PCP - General 08/20/24 documented as of this encounter
--- OUTSIDE RECORDS SUMMARY | 2024-10-01 12:56 | XMS_ITS | Encounter Summary ---
Author Organization [facility] Address [address] [facility] [place] [address] Support Name Relationship Address Phone Cole Dumont Significant other [address] [place] [address] jorje Alicea Extended family member [address] [place] [address] Care Team Providers Care Rate Clerk Name Role Phone None, Physician Primary Care Provider Unavailabl e Encounter Details Date Type Department Care Team (Late st Contact Info) Description 01/27/2022 Telephone [facility] [address] [facility] [place] [phone] Faith Arnold APRN-CNP [facility] [phone] Social History Tobacco Use Types Packs/Day Years Used Date Smoking Tobacco: Every Day Cigarettes Smokeless Tobacco: Never Sex and Gender Information Value Date Recorded Sex Assigned at Not on file Legal Sex Male 5:21 PM CDT Gender Identity Not on file Sexual Orientation Not on file documented as of this encounter Plan of Treatment Not on file documented as of this encounter Visit Diagnoses Not on filedocumented in this encounter Additional Health Concerns Infection Onset Date Last Indicated Resolved Time COVID-19 Under Investigation 03/05/2023 03/05/2023 03/05/2023 11:47 PM CDT documented as of this encounter Care Teams Rate Clerk Relationship Specialty Start Date End Date None, Physician [address] [place] [address] PCP - General 08/20/24 documented as of this encounter
--- OUTSIDE RECORDS SUMMARY | 2024-10-01 12:56 | XMS_ITS | Clinical Summary ---
Author Organization [facility] Address [address] [place] [address] Phone Care Team Providers Care Radio Division Officer Name Role Phone Provider, None Primary Care Provider Unavailabl e Allergies Active Allergy Reactions Criticality Noted Date Comments Penicillins Anaphylaxis 06/17/2017 Medications clonazePAM (KLONOPIN) 1 MG Tablet Take 1 mg by mouth 3 times daily. Active CITALOPRAM HYDROBROMIDE PO Take 60 mg by mouth nightly. Active prazosin (MINIPRESS) 2 MG Capsule Take 2 mg by mouth nightly. Active Social History Tobacco Use Types Packs/Day Years Used Date Smoking Tobacco: Every Day Cigarettes Smokeless Tobacco: Never Alcohol Use Standard Drinks/Week Comments Yes 0 (1 standard drink = 0.6 oz pur e alcohol) Sex and Gender Information Value Date Recorded Sex Assigned at Not on file Legal Sex Male 7:59 PM CDT Gender Identity Not on file Sexual Orientation Not on file Last Filed Vital Signs Vital Sign Reading Time Taken Comments Blood Pressure 149/93 06/17/2017 7:40 PM TELEGRAPHIC TYPEWRITER MECHANIC Pulse 91 06/17/2017 7:40 PM TELEGRAPHIC TYPEWRITER MECHANIC Temperature 36.5 C (97.7 F) 06/17/2017 7:40 PM TELEGRAPHIC TYPEWRITER MECHANIC Respiratory Rate 22 06/17/2017 7:40 PM TELEGRAPHIC TYPEWRITER MECHANIC Oxygen Saturation 100% 06/17/2017 7:40 PM TELEGRAPHIC TYPEWRITER MECHANIC Inhaled Oxygen Concentration - - Weight 93 kg (205 lb) 06/17/2017 7:40 PM TELEGRAPHIC TYPEWRITER MECHANIC Height 177.8 cm (5' 10 ) 06/17/2017 7:40 PM TELEGRAPHIC TYPEWRITER MECHANIC Body Mass Index 29.41 06/17/2017 7:40 PM TELEGRAPHIC TYPEWRITER MECHANIC Plan of Treatment Not on file Care Teams Radio Division Officer Relationship Specialty Start Date End Date Provider, None [place] PCP - General 06/17/17
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
[2024-10-01] MEDS: KETOROLAC 15 MG/ML VIAL (*BKC) IV PUSH (14:28)
[2024-10-01 14:43] LABS: Basophils Absolute Auto 0.1 K/mm3 (0.0-0.1); Basophils Percent Auto 0.8 % (0.2-1.2); Eosinophils Absolute Auto 0.7 K/mm3 (0-0.3); Eosinophils Percent Auto 7.5 % (0-4.4); Hematocrit 47.1 % (42.0-52.0); Hemoglobin 15.6 g/dL (14.0-18.0); Immature Granulocyte Absolute 0.03 K/mm3 (0.00-0.031); Immature Granulocyte Percent A 0.3 % (0-0.5); Lymphocytes Absolute Auto 3.31 K/mm3 (0.9-3.2); Mean Corpuscular HGB Conc 33.1 g/dl (32-36); Mean Corpuscular Hemoglobin 30.8 pg (26-34); Mean Corpuscular Volume 93.1 fl (80-100); Mean Platelet Volume 10.7 fl (7.4-10.4); Monocytes Absolute Auto 0.6 K/mm3 (0.1-0.6); Monocytes Percent Auto 6.6 % (2.6-8.5); Neutrophils Absolute Auto 4.5 K/mm3 (1.3-6.7); Neutrophils Percent Auto 48.8 % (45.5-73.1); Platelet Count Result 288 k/mm3 (150-375); Red Blood Count 5.06 M/mm3 (4.6-6.20); Red Cell Distribution Width 14.1 % (11.5-14.5); White Blood Count 9.2 K/mm3 (4.5-10.0)
[2024-10-01 15:00] LABS: Alanine Aminotransferase 33 U/L (6-50); Albumin Level 4.4 g/dL (3.5-5.1); Alkaline Phosphatase 62 U/L (38-126); Anion Gap 8 mmol/L (4-12); Aspartate Amino Transferase 27 U/L (17-59); Bilirubin,Total 0.7 mg/dL (0.2-1.3); Blood Urea Nitrogen 9 mg/dL (9-20); CRP 0.6 mg/dL (<1.0); Calcium 9.1 mg/dL (8.4-10.2); Carbon Dioxide 24 mmol/L (22-30); Chloride 106 mmol/L (98-107); Estimated CRCL calculation 112 ml/min; Estimated Glomerular Filt Rate > 60; Glucose 101 mg/dL (65-110); Potassium 4.6 mmol/L (3.4-5.0); Sodium 138 mmol/L (137-145)
[2024-10-01 15:44] LABS: Erythrocyte Sedimentation Rate 4 mm/hr (0-20)
--- OUTSIDE RECORDS SUMMARY | 2024-10-01 17:37 | XMS_ITS | Encounter Summary ---
Author Organization [facility] Address [address] [place] [address] Support Name Relationship Address Phone Cole Dumont Significant other [address] [place] [address] jorje Alicea Extended family member [address] [place] [address] Care Team Providers Care Studio Couch Frame Builder Name Role Phone None, Physician Primary Care Provider Unavailabl e Encounter Details Date Type Department Care Team (Late st Contact Info) Description 04/16/2024 Telephone [facility] - Dermatology [address] [place] [address], [facility] [place] [phone] Carmina Paul MD [address] [place] [address] [address] [place] [address] Social History Tobacco Use Types [...] Faxed signed cover letter and rx to [facility] patient assistance program. [facility]- Pharmacy Lollypop Machine Operator (Dermatology) NG DOUBLE * Telephone Encounter - [facility] - 04/25/2024 5:07 PM CST Sent [employer] message to patient to send over images of insurance card and proof of income needed for PAP. [facility]- Pharmacy Lollypop Machine Operator (Dermatology) NG DOUBLE * Telephone Encounter - [facility] - 04/18/2024 3:22 PM CST Faxed Provider portion of PAP application to [employer]. [facility]- Pharmacy Lollypop Machine Operator (Dermatology) NG DOUBLE * Telephone Encounter - Yina Benz - 04/18/2024 3:00 PM CST Patient states he completed his application and faxed to patient assistance program. States he called 04/17/24 to get an update and was told they are waiting to hear back from Dr. Paul. I don't see any current forms in patient's chart Advised patient we will keep him posted Yina Benz NG DOUBLE * Telephone Encounter - Berta Hallman PA - 04/17/2024 2:43 PM CST MA please call patient and document what he needs in chart. If he is asking about patient assistance forms for 2024 please advise him to complete his portion and we will complete our portion before the end of the year along with the other patients forms we complete. Berta NG DOUBLE * Telephone Encounter - Courtney Umaña - 04/16/2024 1:21 PM CST Pt callingto speak with Dr Paul about filling out paperwork for [facility] Patient Assistance program NG DOUBLE documented in this encounter Plan of Treatment Not on file documented as of this encounter Visit Diagnoses Not on filedocumented in this encounter Care Teams Studio Couch Frame Builder Relationship Specialty Start Date End Date None, Physician [address] [place] [address] PCP - General 08/20/24 documented as of this encounter
--- OUTSIDE RECORDS SUMMARY | 2024-10-01 17:37 | XMS_ITS | Encounter Summary ---
Author Organization [facility] Address [address] [place] [address] Support Name Relationship Address Phone Cole Dumont Significant other [address] [place] [address] jorje Alicea Extended family member [address] [place] [address] Care Team Providers Care Auto Body Repairer Fiberglass Name Role Phone None, Physician Primary Care Provider Unavailabl e Encounter Details Date Type Department Care Team (Late st Contact Info) Description 09/13/2023 Telephone [facility] - Centralized Scheduling [address] [place] [phone] [facility] Social History Tobacco Use Types [...] PM CDT Spoke with patient today and [employer] PAP claimed I never sent the application. I resent application with pa and appeal denial letters. [facility] * Telephone Encounter - [facility] - 09/15/2023 8:19 AM CDT Faxed application to [employer] including tax return, pa denial and appeal denial letter. [facility] documented in this encounter Plan of Treatment Not on file documented as of this encounter Visit Diagnoses Not on filedocumented in this encounter Care Teams Auto Body Repairer Fiberglass Relationship Specialty Start Date End Date None, Physician [address] [place] [address] PCP - General 08/20/24 documented as of this encounter
--- OUTSIDE RECORDS SUMMARY | 2024-10-01 17:37 | XMS_ITS | Encounter Summary ---
Author Organization [facility] Address [address] [facility] [place] [address] Support Name Relationship Address Phone Cole Dumont Significant other [address] [place] [address] jorje Alicea Extended family member [address] [place] [address] Care Team Providers Care Open Die Inspector Name Role Phone None, Physician Primary Care Provider Unavailabl e Encounter Details Date Type Department Care Team (Late st Contact Info) Description 01/27/2022 Telephone [facility] [address] [facility] [place] [phone] Faith Arnold APRN-CNP [facility] [phone] Social History Tobacco Use Types Packs/Day Years [...] documented as of this encounter Care Teams Open Die Inspector Relationship Specialty Start Date End Date None, Physician [address] [place] [address] PCP - General 08/20/24 documented as of this encounter
--- OUTSIDE RECORDS SUMMARY | 2024-10-01 17:37 | XMS_ITS | Encounter Summary ---
Author Organization [facility] Address [address] [facility] [place] [address] Support Name Relationship Address Phone Cole Dumont Significant other [address] [place] [address] jorje Alicea Extended family member [address] [place] [address] Care Team Providers Care Child Care Centre Director Name Role Phone None, Physician Primary Care Provider Unavailabl e Encounter Details Date Type Department Care Team (Late st Contact Info) Description 05/25/2024 Telephone [facility] - Dermatology [address] [place] [address], [facility] [place] [phone] Carmina Paul MD [address] [place] [address] [address] [place] [address] Social History Tobacco Use Types [...] clinic to discuss things further Thank you. ICATIONS TRAINER * Telephone Encounter - Carmina Paul MD [...] opinion regarding his medical tx. Thank you. ICATIONS TRAINER * Telephone Encounter - Carmina Paul MD [...] he had asked to talk to a truck supervisor there about the situation, he says [...] can continue to get it through the [facility], but that hopefully he could talk to their accountant manager again about the difficulty with his [...] with Dr. Simon regarding his medical treatment. ICATIONS TRAINER * Telephone Encounter - Courtney Umaña - 05/25/2024 3:40 PM CST Pt calling to speak with someone about requesting a new medication ICATIONS TRAINER documented in this encounter Plan of Treatment Not on file documented as of this encounter Visit Diagnoses Not on filedocumented in this encounter Care Teams Child Care Centre Director Relationship Specialty Start Date End Date None, Physician [address] [place] [address] PCP - General 08/20/24 documented as of this encounter
--- OUTSIDE RECORDS SUMMARY | 2024-10-01 17:37 | XMS_ITS | Clinical Summary ---
Author Organization [facility] Address [address] [place] [address] Phone Care Team Providers Care Land Management Supervisor Name Role Phone Provider, None Primary Care [...] Comments Blood Pressure 149/93 06/17/2017 7:40 PM SHOT POLISHER AND INSPECTOR Pulse 91 06/17/2017 7:40 PM SHOT POLISHER AND INSPECTOR Temperature 36.5 C (97.7 F) 06/17/2017 7:40 PM SHOT POLISHER AND INSPECTOR Respiratory Rate 22 06/17/2017 7:40 PM SHOT POLISHER AND INSPECTOR Oxygen Saturation 100% 06/17/2017 7:40 PM SHOT POLISHER AND INSPECTOR Inhaled Oxygen Concentration - - Weight 93 kg (205 lb) 06/17/2017 7:40 PM SHOT POLISHER AND INSPECTOR Height 177.8 cm (5' 10 ) 06/17/2017 7:40 PM SHOT POLISHER AND INSPECTOR Body Mass Index 29.41 06/17/2017 7:40 PM SHOT POLISHER AND INSPECTOR Plan of Treatment Not on file Care Teams Land Management Supervisor Relationship Specialty Start Date End Date Provider, None [place] PCP - General 06/17/17
--- OUTSIDE RECORDS SUMMARY | 2024-10-01 17:37 | XMS_ITS | Continuity of Care Document ---
Author Organization [facility] Address [address] [place] [address] [place] [address] Phone Care Team Providers Care Sleep Technician Name Role Phone Josse Velasquez MD Unavailable Unavailable Allergies, Adverse Reactions, Alerts Substance Reaction Status Criticality Penicillins Active No Information Medications Medication Instructions Dosage Effective Dates (start - stop) Status Comments Klonopin 1 mg tablet take 1 tablet by oral route 2 times every day as needed 1 MG - Active avoid drivin g or operate machines Procedures Procedure Date PREV VISIT, NEW, AGE 18-39 Advance Directives Directive Yes / No Effective Date File Name No Information Encounters Encounter Description Practice Location Reason(s) For Visit Diagnoses Date Provider Providers Copied on Encounter PREV VISIT, NEW, AGE 18-39 [facility], [address], [place], [id number], tel:[phone] [facility] Physical (chief complaint) Encntr for general adult medical exam w/o abnormal findings Ron Loaiza. [address] [place], [place], [id number], [place]. tel:[phone] Family History Family Member Type Diagnosis Age At Onset Mother Problem (finding) Alcoholism Brother Problem (finding) Depression Father Problem (finding) Depression Payers Payer name Insurance type Covered libertarian ID Authoriza tion(s) No Information Social History Type Description Quantity Date Captured Comments Alcohol Use Details No Caffeine Use Details Unknown Tobacco Use Status User of moist powder ed tobacco Smoking Status Light tobacco smoker Non-Smoking Tobacco Use Details Smokeless: No Details Available Smokeless: No Details Available Sex Male Vital Signs Date / Time: Height Weight BMI Pulse Rate Blood Pressure Temperature Respiratory Rate Body Surface Area Head Circumference BMI percentile Pulse Ox Inhaled Ox 12:21 PM 69.00 in 168.00 lbs 24.8 1 kg/m eter (2) 98 /min 133/86 mm[Hg] 98.6 F 16 /min Chief Complaint And Reason For Visit From encounter dated '06/13/2015 12:21'. Physical (chief complaint). Description: Pt needs annual physical. Pt has chronic anxiety and depression. Pt stats that he is on klonpin 0.5 BID for long time and he states that it is no longer working. Pt feels depressed and anxious and he canot work due to his severe anxiety. Pt has difficluty dealing wit other people due to anxiety. Pt denies any suicidal or homicidal thought. Pt also has ? lupus. Pt has some joint pain around knee and ankle for long time Pt was told he has lupus but not confirmed. Pt states that he has anxiety induced rash and he was told he has lupus by one physician butno lupus by another physician. Pt states that he also seen somebody from [facility] about his lupus but still no idea if he has lupus or not. Pt denies any facial rash. Pt denies any other complaints Plan Of Treatment Date Type Action Status No Information History Of Present Illness Encounter Date Complaint History Of Prese nt Illness Physical Pt needs annual physical. Pt has chronic anxiety and depression. Pt stats that he is on klonpin 0.5 BID for long time and he states that it is no longer working. Pt feels depressed and anxious and he canot work due to his severe anxiety. Pt has difficluty dealing wit other people due to anxiety. Pt denies any suicidal or homicidal thought. Pt also has ? lupus. Pt has some joint pain around knee and ankle for long time Pt was told he has lupus but not confirmed. Pt states that he has anxiety induced rash and he was told he has lupus by one physician but no lupus by another physician. Pt states that he also seen somebody from [facility] about his lupus but still no idea if he has lupus or not. Pt denies any facial rash. Pt denies any other complaints Instructions Date Instruction Additional Infor mation No Information Assessments Type Assessment Date assessment Encntr for general adult medical exam w/o abnormal findings Mental Status Date Cognitive Assessment Orientation - [place] ed to time, place, person, situation.
--- OUTSIDE RECORDS SUMMARY | 2024-10-01 17:37 | XMS_ITS | Continuity of Care Document ---
Author Organization [facility] Address [address] [place] [address] Phone Care Team Providers Care Software Program Manager Name Role Phone Gary OD, Cristian Unavailable Unavailable Advance Directives Directive Yes / No Effective Date File Name No Information Encounters Encounter Description Practice Location Reason(s) For Visit Diagnoses Date Provider Providers Copied on Encounter Formerly [facility], [address], [place], [place], [id number], [place] tel:[phone] [facility] No Information Mar-2 3-200 5 Gary OD Cristian. [address] [place] , [address], [place], [address], [place]. tel:[phone] Family History Family Member Type Diagnosis Age At Onset No Information Payers Payer name Insurance type Covered republican ID Authoriza tion(s) Medicaid [facility] [id number] Social History Type Description Quantity Date Captured Comments Sex Male Smoking Status No Information Chief Complaint And Reason For Visit No Information Reason For Referral Reason For Referral No Information History Of Present Illness Encounter Date Complaint History Of Prese nt Illness No Information Functional Status Date Functional Assessmen t No Information Instructions Date Instruction Additional Infor mation No Information Assessments Type Assessment Date No Information Patient Care Teams Name Effective Dates (start - stop) Status Members No Information
--- OUTSIDE RECORDS SUMMARY | 2024-10-01 17:37 | XMS_ITS | Clinical Summary ---
Author Organization [facility] Address [address] [place] [place] [address] Support Name Relationship Address Phone Cole Dumont Significant other [address] [place] [address] jorje Alicea Extended family member [address] [place] [address] Care Team Providers Care Railroad Car Loader Name Role Phone None, Physician Primary Care Provider Unavailabl e Source Comments [facility],non-owned Affiliates and Associated Physician Practices is amultiple site organization consisting of ambulatory clinics and hospital sitesin [place], [place], [place] and [place]. This disclosure is being madepursuant to the Care Everywhere program and may not contain all information available regarding this patient. Last updated 18.[facility] Allergies Active Allergy Reactions Criticality Noted Date [...] 09/05/2024 Telephone [facility] - Rheumatology [address] [place] [phone] Angelina Carias MD LABS ONLY 09/05/2024 Telephone [facility] [address] [place] [phone] Angelina Carias MD LABS ONLY (Pt wanting results from labs) 08/30/2024 Telephone [facility] Rhe[facility] [address] [place] [phone] Angelina Carias MD Results 08/20/2024 2:20 PM CDT - 08/20/2024 11:59 PM CDT Hospital Encounter [facility] DIAGNOSTIC RAD OP [address] [place] [address] Albaro Fischer MD Discharge Disposition: Home or Self Care 08/20/2024 2:20 PM CDT - 08/20/2024 11:59 PM CDT Hospital Encounter [facility] LAB OP DRAW STATION [address] [place] [address] Discharge Disposition: Home or Self Care 08/20/2024 1:00 PM CDT [facility] [address] [place] [phone] Albaro Fischer MD Zia, Aisha, MD Polyarthralgia (Primary Dx); Other psoriasis 08/20/2024 Travel 08/17/2024 Telephone [facility] Rhe[facility]ology [address] [place] [phone] Angelina Carias MD Appointment 07/23/2024 Orders Only [facility] - General Dermatology [address] [place], [place] [address] [address], [address] [place] [address] Carmina Paul MD Other psoriasis 07/23/2024 Telephone [facility] - Dermatology [address] [place] [phone] Jimmie Simon MD Med Question (pt waiting since 07/17/24 for a call to discuss Cosentex dosage change.) 07/11/2024 1:50 PM SLURRY MIXER Office Visit [facility] - Dermatology [address] [place] [phone] Jimmie Simon MD Hidradenitis suppurativa (Primary [...] this topic Medical Devices Implanted Type Area Integration Solution Architect Device Identifier Shelf Expiration Date Model / Serial / Lot Nivis Fibrillar Collagen Pack 1g Implanted:Qty: 1 on 11/01/2022 by Stephan Copeland MD at [facility] N/A: Buttocks 11/12/2024 [id number] / / [id number] Nivis Fibrillar Collagen Pack 2g Implanted:Qty: 1 on 11/01/2022 by Stephan Copeland MD at [facility] N/A: Buttocks 11/12/2024 FCWD20 / / [id number] Procedures Procedure Name Priority Date/Time Associated Diagnosis Comments URINALYSIS W/MICROSCOPIC REFLEX TO CULTURE Routine 08/20/2024 4:49 PM CDT Polyarthralgia DNA ANTIBODY DS CRITHIDIA TITER Routine 08/20/2024 3:24 PM CDT Polyarthralgia ZURITA/MAPPING SPECIALIST (AMY) ANTIBODY IGG Routine 08/20/2024 3:24 PM [...] MORE Routine 08/20/2024 2:40 PM CDT Polyarthralgia [place] KENALOG 40 INJ Routine 07/11/2024 2:4 2 PM SLURRY MIXER Hidradenitis suppurativa W[place] INTRALESIONAL INJECTION(S) 7 OR LESS Routine 07/11/2024 2:42 PM SLURRY MIXER Hidradenitis suppurativa from Last 3 Months Results * URINALYSIS W/MICROSCOPIC REFLEX TO CULTURE (08/20/2024 4:49 PM CDT) Color UA Yellow Yellow, Straw 08/20/2024 5:47 PM CDT [facility] Clarity UA Clear Clear 08/20/2024 5:47 PM CDT [facility] Glucose UA Normal Normal 08/20/2024 5:47 PM CDT [facility] Bilirubin UA Negative Negative 08/20/2024 5:47 PM CDT [facility] Ketone UA Negative Negative 08/20/2024 5:47 PM CDT [facility] Specific Arnold UA 1.020 1.005 - 1.030 08/20/2024 5:47 PM CDT [facility] Blood UA Negative Negative 08/20/2024 5:47 PM CDT [facility] pH UA 6.5 5.0 - 9.0 pH 08/20/2024 5:47 PM CDT [facility] Protein UA Negative Negative 08/20/2024 5:47 PM CDT [facility] Urobilinogen UA Normal Normal mg/dL 025 5:47 PM CDT [facility] Nitrite UA Negative Negative 08/20/2024 5:47 PM CDT [facility] Leukocyte UA Negative Negative 08/20/2024 5:47 PM CDT [facility] RBC UA 0-2 0 - 5 # /hpf 08/20/2024 5:47 PM CDT [facility] WBC UA 0-5 0 - 5 # /hpf 08/20/2024 5:47 PM CDT [facility] Bacteria UA None Seen None Seen 08/20/2024 5:47 PM CDT [facility] Squamous Epithelial Cells 0-2 0 - 5 /hpf 08/20/2024 5:47 PM T [facility] Mucus UA 1+ /LPF 08/20/2024 5:47 PM CDT [facility] Urine URINE SPECIMEN OBTAINED BY CLEAN CATCH PROCEDURE / Unknown Collection / Unknown 08/20/2024 4:49 PM CDT 08/20/2024 5:20 PM CDT Narrative [facility] - 08/20/2024 5:47 PM CDT us Albaro Fischer MD LAB - URINALYSIS ORDERABLES Juani l Result [address] [address], [facility] [phone] * PATRICIA HEP-2 IGG BY IFA (08/20/2024 3:24 PM CDT) PATRICIA HEp-2 IgG <1:80 <1:80 08/23/2024 10:36 AM CDT [employer] [facility] ([facility]) PATRICIA Interpretive Comment See Note 08/23/2024 10:36 AM CDT [facility] ([facility]) Comment: Antinuclear antibodies by IFA negative for [...] positive PATRICIA by more specific serologic tests. PATRICIA (nuclear reactivity) positive patterns reported include centromere, [...] not necessarily rule out SARD. Performed By: [facility] [address] [place] [address] Landscape Engineer: Artie Wilson MD, PhD CLIA Number: [id number] Blood BLOOD SPECIMEN / Unknown Lab Venipuncture / Unknown 08/20/2024 3:24 PM CDT 08/20/2024 3:31 PM CDT Albaro Fischer MD LAB - SEROLOGY ORDERABLES Final Result [employer] [facility]) [address] [place] [address] * SS-A (SJOGREN'S) 52+60 ANTIBODIES (08/20/2024 3:24 PM CDT) [facility] SS-A 52 Antibody 2 0 - 40 AU/mL 08/23/2024 5:14 AM CDT [employer] ([facility]) Comment: INTERPRETIVE INFORMATION: SSA-52 (Ro52) (AMY) Antibody, [...] - 40 AU/mL 08/23/2024 5:14 AM CDT [employer] [facility] ([facility]) Comment: REFERENCE INTERVAL: SSA-60 (Ro60) (AMY) Antibody, IgG 29 AU/mL or Less ............. Negative 30 - 40 AU/mL ................ Equivocal 41 AU/mL or Greater .......... Positive Performed By: [facility] [address] [place] [address] Landscape Engineer: Artie Wilson MD, PhD CLIA Number: [id number] Blood BLOOD SPECIMEN / Unknown Lab Venipuncture / Unknown 08/20/2024 3:24 PM CDT 08/20/2024 3:31 PM CDT Albaro Fischer MD LAB - CHEMISTRY ORDERABLES Final Result [facility]) [address] [place] [address], [facility] * ZURITA/MAPPING SPECIALIST (AMY) ANTIBODY IGG (08/20/2024 3:24 PM CDT) Zurita/MAPPING SPECIALIST (AMY) Antibody IgG 10 0 - 19 Units 08/23/2024 5:24 AM CDT [facility] [facility] ([facility]) Comment: INTERPRETIVE INFORMATION: Zurita/MAPPING SPECIALIST (AMY) Antibody, IgG 19 Units or Less ............. Negative 20 to 39 Units ............... Weak Positive 40 to 80 Units ............... Moderate Positive 81 Units or greater .......... Strong Positive Zurita/MAPPING SPECIALIST antibodies are frequently seen in patients with mixed connective tissue disease (MCTD) and are also associated with other systemic autoimmune rheumatic diseases (SARDs) such as systemic lupus erythematosus (SLE), systemic sclerosis, and myositis. Antibodies targeting the Zurita/MAPPING SPECIALIST antigenic complex also recognize Zruita antigens, therefore, the Zurita antibody response must be considered when interpreting these results. Performed By: [facility] [address] [place] [address] Landscape Engineer: Artie Wilson MD, PhD CLIA Number: [id number] Blood BLOOD SPECIMEN / Unknown Lab Venipuncture / Unknown 08/20/2024 3:24 PM CDT 08/20/2024 3:31 PM CDT us Albaro Fischer MD LAB - CHEMISTRY ORDERABLES Final Result Performing Organization Address [facility] de Phone Number [facility] [employer] [facility]) [address] [place] [address] * CHROMATIN ANTIBODY (08/20/2024 3:24 PM CDT) [facility] Chromatin Antibody 9 0 - 19 Units 08/23/2024 12:13 AM CDT [employer] [facility]) Comment: INTERPRETIVE INFORMATION: Chromatin Antibody, IgG 19 Units or less: Negative 20 - 60 Units: Moderate Positive 61 Units or greater: Strong Positive The presence of anti-chromatin antibodies may be useful in the diagnosis of systemic lupus erythematosus (SLE) or drug-induced lupus (DIL) and have been reported to be predictive of lupus nephritis, especially when antibody levels are high. Performed By: [facility] [address] [place] [address] Landscape Engineer: Artie Wilson MD, PhD CLIA Number: [id number] Blood BLOOD SPECIMEN / Unknown Lab Venipuncture / Unknown 08/20/2024 3:24 PM CDT 08/20/2024 3:31 PM CDT us Albaro Fischer MD LAB - SEROLOGY ORDERABLES Final Result Performing Organization Address [facility] de Phone Number [employer] ([facility]) [address] [place] [address] * HIV-1 HIV-2 ANTIBODY + HIV P24 AG PANEL (08/20/2024 3:24 PM CDT) [facility] HIV Antigen/Antibod y 1 & 2 Non-reacti ve Non-react isaías 08/20/2024 7:44 PM CDT [facility] Comment:No Laboratory eviden ce of HIV infection. Blood BLOOD SPECIMEN / Unknown Lab Venipuncture / Unknown 08/20/2024 3:24 PM CDT 08/20/2024 3:31 PM CDT us Albaro Fischer MD LAB - CHEMISTRY ORDERABLES Final Result [facility] [address] [place] [phone], [facility] [phone] * DNA ANTIBODY DS CRITHIDIA TITER (08/20/2024 3:24 PM CDT) [facility] dsDNA Antibody IgG <1:10 <1:10 2024 5:28 AM CDT [facility] [facility] ([facility]) Comment: INTERPRETIVE INFORMATION: Double-Stranded DNA (dsDNA) Antibody, [...] recommendations for testing may be found at [email or web address]. Performed By: [facility] [address] [place] [address] Landscape Engineer: Artie Wilson MD, PhD CLIA Number: [id number] Blood BLOOD SPECIMEN / Unknown Lab Venipuncture / Unknown 08/20/2024 3:24 PM CDT 08/20/2024 3:31 PM CDT us Albaro Fischer MD LAB - SEROLOGY ORDERABLES Final Result Performing Organization Address City/[facility]/ZIP Co de Phone Number [facility]) [address] [place] [address] * ZURITA (SM) ANTIBODY AMY (08/20/2024 3:24 PM CDT) [facility] Zurita (AMY) Antibody 2 0 - 40 AU/mL 08/22/2024 11:02 PM CDT [facility] ([facility]) Comment: INTERPRETIVE INFORMATION: Zurita (AMY) Antibody, IgG 29 AU/mL or Less ............. Negative 30 - 40 AU/mL ................ Equivocal 41 AU/mL or Greater .......... Positive Zurita antibody is highly specific (greater than 90 percent) for systemic lupus erythematosus (SLE) but only occurs in 30-35 percent of SLE cases. The presence of antibodies to Zurita has variable associations with SLE clinical manifestations. Performed By: [place] [address] Landscape Engineer: Artie Wilson MD, PhD CLIA Number: [id number] Blood BLOOD SPECIMEN / Unknown Lab Venipuncture / Unknown 08/20/2024 3:24 PM CDT 08/20/2024 3:31 PM CDT us Albaro Fischer MD LAB - CHEMISTRY ORDERABLES Final Result Performing Organization Address [facility]/ZIP Co de Phone Number [facility]) [address] [place] [address] * RHEUMATOID FACTOR BLOOD QUANTITATIVE (08/20/2024 3:24 PM CDT) [facility] Rheumatoid Factor <15 <30 IU/mL 08/20/2024 7:14 PM CDT [facility] Rheumatoid Factor Screen Negative Negative 08/20/2024 7:14 PM CDT [facility] Blood BLOOD SPECIMEN / Unknown Lab Venipuncture / Unknown 08/20/2024 3:24 PM CDT 08/20/2024 3:31 PM CDT us Albaro Fischer MD LAB - CHEMISTRY ORDERABLES Final Result Performing Organization Address City/[facility]/ZIP Co de Phone Number [address] [address], [facility] [phone] * C-REACTIVE PROTEIN (08/20/2024 3:24 PM CDT) C-Reactive Protein <0.5 <=0.5 mg/dL 08/20/2024 6:45 PM CDT [facility] Blood BLOOD SPECIMEN / Unknown Lab Venipuncture / Unknown 08/20/2024 3:24 PM CDT 08/20/2024 3:56 PM CDT us Albaro Fischer MD LAB - CHEMISTRY ORDERABLES Final Result Performing Organization Address City/[facility]/ZIP Co de Phone Number [address] [address], [place] [phone] * PATRICIA BLOOD SCREEN W/REFLEX TITER (08/20/2024 3:24 PM CDT) Pathologist [facility] PATRICIA IgG None Detected None Detected 08/23/2024 7:59 PM CDT [facility] [employer] ([facility]) Comment: If suspicion of connective tissue disease is strong and PATRICIA EIA is negative, consider testing for PATRICIA by IFA ([id number]). INTERPRETIVE INFORMATION: Anti-Nuclear Antibodies (PATRICIA), IgG by SKY Antinuclear Antibodies (PATRICIA), IgG by SKY: PATRICIA specimens are screened using enzyme-linked immunosorbent assay (SKY) methodology. All SKY results reported as Detected are further tested by indirect fluorescent assay (IFA) using HEp-2 substrate with an IgG-specific conjugate. The PATRICIA SKY screen is designed to detect antibodies against dsDNA, histones, SS-A (Ro), SS-B (La), Zurita, Zurita/MAPPING SPECIALIST, Scl-70, Georgette-1, centromeric proteins, other antigens extracted from the HEp-2 cell nucleus. PATRICIA SKY assays have been reported to have lower sensitivities than PATRICIA IFA for systemic autoimmune rheumatic diseases (SARD). Negative results do not necessarily rule out SARD. Performed By: [facility] [address] [place] [address] Landscape Engineer: Artie Wilson MD, PhD CLIA Number: [id number] Blood BLOOD SPECIMEN / Unknown Lab Venipuncture / Unknown 08/20/2024 3:24 PM CDT 08/20/2024 3:31 PM CDT us Albaro Fischer MD LAB - CHEMISTRY ORDERABLES Final Result Performing Organization Address [facility] Co de Phone Number [facility] ([facility]) [address] [place] [address] * HLA TYPING B27 (08/20/2024 3:24 PM CDT) [facility] HLA-B27 Negative Negative 08/21/2024 4:29 PM CDT [facility] ([facility]) Comment: INTERPRETIVE INFORMATION: HLA-B27 HLA-B27 is a serologically defined allele of the human HLA-B locus. The presence of the HLA-B27 antigen is strongly associated with ankylosing spondylitis and related disorders. This test was developed and its performance characteristics determined by [facility]. It has not been cleared or approved by the [place] Food and Drug Administration. This test was performed in a CLIA certified laboratory and is intended for clinical purposes. Performed By: [facility] [address] [place] [address] Landscape Engineer: Artie Wilson MD, PhD CLIA Number: [id number] Blood BLOOD SPECIMEN / Unknown Lab Venipuncture / Unknown 08/20/2024 3:24 PM CDT 08/20/2024 3:31 PM CDT us Albaro Fischer MD LAB - CHEMISTRY ORDERABLES Final Result Performing Organization Address [facility] Co de Phone Number [facility] ([facility]) [address] [place] [address] * CENTROMERE ANTIBODY (08/20/2024 3:24 PM CDT) [facility] Centromere Antibody 0 0 - 40 AU/mL 08/23/2024 5:33 AM CDT [facility] ([facility]) Comment: INTERPRETIVE INFORMATION: Centromere Ab, IgG 29 [...] other antibodies associated with SSc, including Scl-70, U3-MAPPING SPECIALIST, PM/Scl, or Th/To. Performed By: [facility] [address] [place] [id number] Landscape Engineer: Artie Wilson MD, PhD CLIA Number: [id number] Specimen (Source) Anatomical Location / Laterality Collection Method / Volume Collection Time [id number]|2024-10-01 17:37:00|2024-10-01 17:36:00|XMS_ITS|BKG DAEMON|External Medical Summaries|[id number]|" CONTINUITY OF CARE DOCUMENT Created on: October 01, 2024 Cristian Keating : 1985 Sex: Male Author Name liat josue Address Unknown Organization [facility] Address [address] [address] Phone [phone] Care Team Providers Care Railroad Car Loader Name Role Phone Yaneth Wilder MD Unavailable Yaneth Wilder MD Unavailable INSURANCE PROVIDERS Payer name Policy type / Coverage type [place] red democrat [place] MEDICAID (2) Medicaid [id number] "
--- OUTSIDE RECORDS SUMMARY | 2024-10-01 17:37 | XMS_ITS | Encounter Summary ---
Author Organization [facility] Address [address] [place] [address] Support Name Relationship Address Phone Cole Dumont Significant other [address] [place] [address] jorje Alicea Extended family member [address] [place] [address] Care Team Providers Care Security System Technician Name Role Phone None, Physician Primary Care Provider Unavailabl e Reason for Visit * Reason Onset Date Comments General 10/14/2023 Encounter Details Date Type Department Care Team (Late st Contact Info) Description 10/14/2023 Telephone [facility] - General Dermatology [address], [address] [place] [address] Carmina Paul MD [address] [place] [address] General Social History Tobacco Use [...] he didn't want to talk to any [facility] physician speech language pathologist assistant . He will only maybe talk to Dr. Paul. I apologized for any misunderstandings. Patient immediately hung up the phone while I was explaining next steps. Adama Cueva PA-C * Telephone Encounter - Admaa Cueva PA-C - 10/21/2023 5:19 PM CDT [...] on filedocumented in this encounter Care Teams Security System Technician Relationship Specialty Start Date End Date None, Physician [address] [place] [address] PCP - General 08/20/24 documented as of this encounter
--- OUTSIDE RECORDS SUMMARY | 2024-10-01 17:37 | XMS_ITS | Encounter Summary ---
Author Organization [facility] Address [address] [facility] [place] [address] Support Name Relationship Address Phone Cole Dumont Significant other [address] [place] [address] jorje Alicea Extended family member [address] [place] [address] Care Team Providers Care Agriculture Science Teacher Name Role Phone None, Physician Primary Care Provider Unavailabl e Reason for Visit * Reason Onset Date Comments Med Question 08/29/2023 Encounter Details Date Type Department Care Team (Late st Contact Info) Description 08/29/2023 Telephone [facility] - General Dermatology [address], [facility] [address] [place] [address] [place] [address] [facility] [address] [place] [address] Med Question Social History Tobacco [...] 09/05/2023 8:27 AM CDT Appeal faxed to [facility] for coverage of Cosentyx and pap paperwork [...] on filedocumented in this encounter Care Teams Agriculture Science Teacher Relationship Specialty Start Date End Date None, Physician [address] [place] [address] PCP - General 08/20/24 documented as of this encounter
[2024-10-01] MEDS: HYDROmorphone HCL INJ (*CRX) 2 MG/ML VIAL 1 MG IV PUSH (18:26)
[2024-10-01] MEDS: ACETAMINOPHEN 500 MG TABLET 1000 MG PO (18:27)
[2024-10-01 18:32] VITALS: BP 132/80; PULSE 82; RESP 16; TEMP 36.6; O2SAT 98
== END 2024-10-01 18:34 | disposition home or self-care (01) ==
LOC: ANHED 17:34
PROVIDERS: Physician Assistant; Emergency Provider Student in an Organized Health Care Education/Training Program; PCP Nurse Practitioner Family
DX: L73.2 Hidradenitis suppurativa (principal); Z79.620 Long term (current) use of immunosuppressive biologic
CPT/HCPCS: 36415; 80053; 85025; 85652; 86140; 96374; 96375; 99284; A9270; J1171; J1885